=== PATIENT | male | born 1960 | race Caucasian/White ===

== ENCOUNTER 2019-06-03 08:47 | Emergency (ER) | payer OTHER, SELFPAY ==
--- NOTE | 2019-06-03 09:08 | ED_ITS ---
Entered by Jolly Valdez, acting as scribe for Remy Pink DO HPI - General Adult General: Chief complaint: Abdominal Pain Stated complaint: ABD PAIN Time Seen by Provider: 06/03/19 09:12 History of Present Illness: HPI narrative: 59 yo male presents with abd pain. pt states that he has had this pain for about 5-6 weeks. pt states that [facility], [facility] stated that it was const[facility]. Pt states that he has been taking magnesium. Pt states that he hasn't had any relief. Pt states that he still feels bloated and has pain. Pt states that he hasn't had any issues with constipation since he started taking dulcalax. Pt states that he has had vomiting. Pt states that when he lifts something that is over 10-15 pounds makes his pain. MD complaint: abd pain. Associated symptoms: Deny chest pain, dyspnea, malaise, nausea, rash or vomiting Review of Systems Const: Denies: fever, chills, body aches, change in appetite, fatigue or malaise ENMT: Denies: throat pain, ear pain, nasal discharge or nasal congestion Card: Denies: chest pain, edema, shortness of breath on exertion or shortness of breath when lying down Resp: Denies: shortness of breath, productive cough or non-productive cough GI: Reports: abdominal pain and bloating; Denies: nausea, vomiting, vomiting blood, coffee grounds in vomit, diarrhea, constipation, blood in stool or black tarry stool : Denies: flank pain, painful urination, urinary frequency or urinary urgency Skin/Breast: Denies: rash or itching PFS ED PFSH: Medical History (Updated 06/03/19 @ 11:17 by Remy Pink DO) Basal cell carcinoma Surgical History (Updated 06/03/19 @ 09:13 by Jolly Valdez) H/O circumcision History of right knee surgery Social History Smoking and tobacco status: never smoked Physical Exam Const: COMMON NORMALS: no apparent distress GENERAL APPEARANCE: cooperative and comfortable ORIENTATION/CONSCIOUSNESS: Yes awake, Yes oriented to person, Yes oriented to place and Yes oriented to time HENMT: COMMON NORMALS: normocephalic, head/scalp atraumatic, hearing grossly normal bilaterally, external ears normal, EAC's normal, TM's normal bilaterally, nasal mucous membranes and turbinates normal, moist oral mucous membranes and oropharynx normal HEAD & SCALP: normocephalic and atraumatic NOSE: nasal mucous membranes and turbinates normal EXTERNAL EAR: Yes external ears normal EXTERNAL AUDITORY CANAL: EAC's normal TYMPANIC MEMBRANE: TM's normal bilaterally Eye: COMMON NORMALS: PERRL, EOMs intact bilaterally, conjunctivae normal and no scleral icterus CONJUNCTIVA: Yes conjunctivae normal PUPIL: Yes PERRL Neck/C-Spine: COMMON NORMALS: full ROM, no lymphadenopathy, supple and no JVD Lymph: LYMPHATIC: no lymphadenopathy noted and no lymphedema noted Resp: COMMON NORMALS: normal respiratory effort, no retractions, no use of accessory muscles and clear to auscultation bilaterally AUSCULTATION: clear to auscultation bilaterally Cardio: COMMON NORMALS: no JVD, regular rate, regular rhythm and no murmurs RATE: regular rate RHYTHM: regular rhythm Extremity: COMMON NORMALS: normal to inspection, normal capillary refill, no clubbing, cyanosis or edema, no calf tenderness and no pedal edema Neuro: SENSORIUM/ORIENTATION: Yes oriented to person, Yes oriented to place and Yes oriented to time Skin: COMMON NORMALS: no rashes or lesions noted GENERAL SKIN EXAM: no rashes or lesions noted Course ED course: Evaluation negative labs unremarkable and his ultrasound of his abdomen unremarkable. He refers most of this pain to the right upper quadrant. He is not had other further work-up but suspect he may need an EGD which if that is negative he may need a HIDA scan beyond that. We will have him use [id number] omeprazole daily follow-up with his primary care doctor for further evaluation within the next week or 2 return if has worsening problems or changes Vital Signs: Vital signs: Vital Signs Temperature 98.2 F 06/03/19 09:09 Pulse Rate 87 06/03/19 11:46 Respiratory Rate 18 06/03/19 11:46 Blood Pressure 128/69 06/03/19 11:46 Pulse Oximetry 97 06/03/19 11:46 MDM - General Adult Lab Data: Labs: Lab Results 06/03/19 06/03/19 06/03/19 Range/Units 09:39 09:39 09:40 WBC 4.4 (4.0-10.0) 10^3/ uL RBC 4.85 (4.1-5.3) 10^6/u L Hgb 15.3 (11.7-16.6) g/dL Hct 46.4 (42.0-52.0) % MCV 95.7 H (80-94) fL MCH 31.5 (28.0-34.0) pg MCHC 33.0 (30.0-36.0) g/dL RDW 11.9 L (12.1-15.1) % Plt Count 199 (130-400) 10^3/c mm MPV 10.2 (7.4-10.4) fL Neut % (Auto) 50.3 % Lymph % (Auto) 37.0 % [place] % (Auto) 7.7 % Eos % (Auto) 4.1 % Baso % (Auto) 0.7 % Neut # (Auto) 2.2 (1.8-7.7) 10^3/u L Lymph # (Auto) 1.6 (0.8-4.8) 10^3/u L [place] # (Auto) 0.3 (0.2-0.9) 10^3/u L Eos # (Auto) 0.2 (0.0-0.8) 10^3/u L Baso # (Auto) 0.0 (0.0-0.1) 10^3/u L Nucleated RBC % (a uto) 0 % Nucleated RBCs # 0.0 /100WBC Sodium 138 (136-145) mmol/L Potassium 4.6 (3.5-5.1) mmol/L Chloride 102 (98-107) mmol/L Carbon Dioxide 28 (22-29) mmol/L Anion Gap 12.6 (5-19) BUN 20 (8-23) mg/dL Creatinine 0.9 (0.7-1.2) mg/dL GFR Calculation 85.8 L (90-130) mL/min Glucose 103 (65-115) mg/dL Calcium 9.8 (8.5-10.5) mg/dL Total Bilirubin 0.5 (0.15-1.2) mg/dL AST 23 (0-40) U/L ALT 27 (0-41) U/L Alkaline Phosphata se 100 (40-130) IU/L Total Protein 7.9 (6.6-8.7) g/dL Albumin 4.0 (3.5-5.2) g/dL Globulin 3.9 (1.3-4.6) g/dL Lipase 19 (13-60) U/L Urine Color Yellow (Yellow) Urine Appearance Clear (CLEAR) Urine pH 5.0 (5-7) Ur Specific Gravit y 1.020 (1.005-1.030) Urine Protein Neg (Negative) Urine Glucose (UA) Norm (Normal) Urine Ketones Negative (Negative) Urine Blood Trace H (Negative) Urine Nitrate Negative (Negative) Urine Bilirubin Neg (NEGATIVE) Urine Urobilinogen Norm (Negative) mg/dL Ur Leukocyte Pooja ase Negative (Negative) Urine RBC 0-4 H (0-2) /hpf Urine WBC None (0-5) /hpf Ur Squamous Epith Cells Rare (0-5) Urine Bacteria Trace (NONE) Urine Mucus 3+ Discharge Plan Discharge Patient Disposition: Home, Self-Care Clinical Impression: Abdominal pain Condition: Stable Prescriptions: New pantoprazole 40 mg tablet,delayed release (DR/EC) 40 mg PO DAILY 28 Days Qty: 30 RF: 0 No Action ibuprofen 200 mg Tablet 200 mg PO EVERY OTHER DAY PRN (Reason: Pain) RF: 0 magnesium citrate Solution 150 ml PO DAILY PRN (Reason: Constipation) RF: 0 Dulcolax (bisacodyl) 5 mg Tablet,Delayed Release (Dr/Ec) 15 mg PO DAILY PRN (Reason: Constipation) RF: 0 magnesium 250 mg Tablet 250 mg PO DAILY RF: 0 MSM 1,000 mg Tablet 1,000 mg PO DAILY RF: 0 Juice Plus 4 tab PO DAILY RF: 0 Discharge Orders: Discharge Order (Routine); Ordered 06/03/19 Ordered By: Remy Pink Referrals: Chandra Ramos [Family Provider] - Discharge Diet: As Directed Discharge Activity: Resume usual activity Patient Instructions: Cholecystitis (ED), Abdominal Pain (ED) Discharge Date/Time: 06/03/19 11:47 Coding Level of Care Code ED Automotive Design Layout Drafter for Chg Fwd Exam Comprehensive The documentation recorded by the José Miguel vanessa Kialy, accurately reflects the service I personally performed and the decisions made by Joesph love Curtis L, DO Jun 03, 2019 08:47
[2019-06-03 09:09] VITALS: BP 125/70; PULSE 78; RESP 16; TEMP 36.8; O2SAT 98; BMI 23.6
--- NOTE | 2019-06-03 09:33 | US_ITS ---
WS: [id number] RIGHT UPPER QUADRANT ULTRASOUND HISTORY: RIGHT upper quadrant pain. COMPARISON: None available. Liver: 10.1 cm in length. Normal size and echogenicity with no intrahepatic dilatation. No mass. Gallbladder: Gallbladder is slightly contracted with mild wall thickening. Probably on a nonfasting b ases. No stones identified. CBD: 2.5 cm Pancreas: Normal size and echogenicity. Right kidney: 10.8 cm in length. Normal echogenicity with no mass or hydronephrosis. Aorta and IVC: Unremarkable. No ascites. US/US gall bladder 62512 IMPRESSION: 1. Mildly contracted gallbladder. Probably on the basis of nonfasting. 2. No acute cholecystitis or cholelithiasis.
[2019-06-03 09:44] LABS: Basophils % 0.7 %; Eosinophils # 0.2 10^3/uL (0.0-0.8); Eosinophils % 4.1 %; Hematocrit 46.4 % (42.0-52.0); Hemoglobin 15.3 g/dL (11.7-16.6); Lymphocytes # 1.6 10^3/uL (0.8-4.8); Mean Corpuscular Hemoglobin 31.5 pg (28.0-34.0); Mean Corpuscular Volume 95.7 fL (80-94); Mean Platelet Volume 10.2 fL (7.4-10.4); Monocytes # 0.3 10^3/uL (0.2-0.9); Monocytes % 7.7 %; Neutrophils # 2.2 10^3/uL (1.8-7.7); Neutrophils % 50.3 %; Nucleated Red Blood Cells % 0 %; Platelet Count 199 10^3/cmm (130-400); Red Blood Count 4.85 10^6/uL (4.1-5.3); Red Cell Distribution Width 11.9 % (12.1-15.1); White Blood Count 4.4 10^3/uL (4.0-10.0)
[2019-06-03 10:00] LABS: Add Urine Microscopic? YES; Bilirubin Urine Neg (NEGATIVE); Blood Urine Trace (Negative); Glucose Urine UA Norm (Normal); Ketones Urine Negative (Negative); Leukocyte Esterase Urine Negative (Negative); Nitrate Urine Negative (Negative); Protein Urine Neg (Negative); Urine Appearance Clear (CLEAR); Urine Color Yellow (Yellow); Urobilinogen Urine Norm (Negative)
[2019-06-03 10:03] LABS: Alanine Aminotransferase 27 U/L (0-41); Alkaline Phosphatase 100 IU/L (40-130); Anion Gap 12.6 (5-19); Aspartate Amino Transferase 23 U/L (0-40); Blood Urea Nitrogen 20 mg/dL (8-23); Calcium 9.8 mg/dL (8.5-10.5); Carbon Dioxide 28 mmol/L (22-29); Chloride 102 mmol/L (98-107); Globulin 3.9 g/dL (1.3-4.6); Glomerular Filtration Rate 85.8 mL/min (90-130); Glucose 103 mg/dL (65-115); Lipase 19 U/L (13-60); Potassium 4.6 mmol/L (3.5-5.1); Sodium 138 mmol/L (136-145); Total Bilirubin 0.5 mg/dL (0.15-1.2); Total Protein 7.9 g/dL (6.6-8.7)
[2019-06-03 10:08] LABS: Add Urine Culture? No; Bacteria Urine TRACE; Mucus Urine 3+; RBC Urine 0-4 /hpf (0-2); Squamous Epithelial Cell Urine RARE (0-5)
[2019-06-03 11:46] VITALS: BP 128/69; PULSE 87; RESP 18; O2SAT 97
== END 2019-06-03 11:47 | disposition home or self-care (01) ==
PROVIDERS: Emergency Provider Family Medicine; Family Provider Internal Medicine
DX: R10.9 Unspecified abdominal pain (principal)
CPT/HCPCS: 36415; 76705; 80053; 81001; 83690; 85025; 99282; 99283

== ENCOUNTER 2019-06-15 09:40 | Emergency (ER) | payer OTHER, SELFPAY ==
[2019-06-15 09:42] VITALS: BP 142/76; RESP 16; O2SAT 98; BMI 23.4
[2019-06-15 11:50] VITALS: BP 145/84; PULSE 79; RESP 18; O2SAT 99
--- NOTE | 2019-06-15 12:33 | ED_ITS ---
HPI - Extremity Problem General: Chief complaint: Extremity Injury, Upper Stated complaint: RIGHT ARM HAS A SPLINTER Time Seen by Provider: 06/15/19 11:55 Source: patient Mode of arrival: ambulatory Limitations: no limitations History of Present Illness: HPI Narrative: splinter from telephone poll to R forearm yesterday; tetanus UTD Complaint: other (splinter to R forearm) Onset (ago): day(s) Pain Consistency: constant Location: right Review of Systems Musc: Reports: other (splinter R forearm) PFSH ED PFSH: Medical History (Updated 06/15/19 @ 12:32 by FER Youssef) Basal cell carcinoma Surgical History (Updated 06/03/19 @ 09:13 by Jolly Valdez) H/O circumcision History of right knee surgery Social History Smoking and tobacco status: never smoked Physical Exam Const: COMMON NORMALS: no apparent distress, average body habitus, oriented x3, no limitations, healthy appearing, alert and well nourished Extremity: OTHER: possibly palpate small splinter under skin Neuro: COMMON NORMALS: oriented x3 SENSORIUM/ORIENTATION: Yes alert Skin: NARRATIVE SKIN EXAM: small puncture tin to dorsal R forearm; about an inch of erythema Procedures Foreign Body Removal Time Out Performed: yes Site: right and upper extremity Description of foreign body: other (wooden splinter) Technique: other (was not able to remove splinter ) Complications: none Neurovascular: normal distal pulse, normal capillary fill, distal light touch sensation intact, distal motor function normal, no signs of compartment syndrome and no change from pre-procedure Course 2 Vital Signs: Vital signs: Vital Signs Pulse Rate 79 06/15/19 11:50 Respiratory Rate 18 06/15/19 11:50 Blood Pressure 145/84 06/15/19 11:50 Pulse Oximetry 99 06/15/19 11:50 MDM - Extremity (Nontraumatic) MDM Narrative: Medical decision making narrative: small incision was made over puncture tin where pt believed was entry point; used hemostats to proble around cautiously but unfortunately was not able to palpate or remove splinter today; will go ahead and place on abx; discussed that hopefully will work itself out or calcify however possibility about continuing infection/abscess was possible. Pt verbalized understanding. Return to ED precautions given. Splinter according to patient is too small for XR or US to be beneficial in its removal. Discharge Plan Discharge Patient Disposition: Home, Self-Care Clinical Impression: Superficial foreign body (splinter) of right elbow, forearm, and wrist without major open wound but with infection Qualifiers: Encounter type: initial encounter Qualified Code(s): S50.351A - Superficial foreign body of right elbow, initial encounter Condition: Stable Prescriptions: New Keflex 500 mg capsule 500 mg PO Q6H 7 Days Qty: 28 RF: 0 No Action ibuprofen 200 mg Tablet 200 mg PO EVERY OTHER DAY PRN (Reason: Pain) RF: 0 magnesium citrate Solution 150 ml PO DAILY PRN (Reason: Constipation) RF: 0 Dulcolax (bisacodyl) 5 mg Tablet,Delayed Release (Dr/Ec) 15 mg PO DAILY PRN (Reason: Constipation) RF: 0 magnesium 250 mg Tablet 250 mg PO DAILY RF: 0 MSM 1,000 mg Tablet 1,000 mg PO DAILY RF: 0 Juice Plus 4 tab PO DAILY RF: 0 pantoprazole 40 mg tablet,delayed release (DR/EC) 40 mg PO DAILY 28 Days Qty: 30 RF: 0 Discharge Orders: Discharge Order (Routine); Ordered 06/15/19 Ordered By: Suzan Castillo Referrals: Chandra Ramos [Family Provider] - Activity Restrictions/Additional Instructions: Return to the emergency department for worsening pain, worsening redness, discharge/foul odor, streaking up your arm, or any other concerns you may have. Fill your antibiotics promptly. Coding Level of Care Code ED Supervisor Cigar Processing for Luis Hoang
[2019-06-15 12:40] VITALS: BP 129/72; PULSE 69; RESP 16; O2SAT 99
== END 2019-06-15 12:41 | disposition home or self-care (01) ==
PROVIDERS: Emergency Provider Physician Assistant; Family Provider Internal Medicine
DX: S50.851A Superficial foreign body of right forearm, initial encounter (principal); W45.8XXA Other foreign body or object entering through skin, initial encounter
CPT/HCPCS: 10120; 12345; 99281; 99282

== ENCOUNTER 2020-10-02 17:02 | Emergency (ER) | payer OTHER, SELFPAY ==
[2020-10-02 17:24] VITALS: BP 168/95; PULSE 65; RESP 18; TEMP 36.8; O2SAT 97; BMI 22.8
--- NOTE | 2020-10-02 18:18 | CTR_ITS ---
PROCEDURE INFORMATION: Exam: CT Head Without Contrast Exam date and time: 10/02/2020 6:18 PM Age: 60 years old Clinical indication: Altered mental status/memory loss and dizziness and speech disturbance; Confusion or disorientation; Patient HX: Transient confusion, dizziness and slurred speech; Additional info: Stroke symptoms TECHNIQUE: Imaging protocol: Computed tomography of the head without contrast. Radiation optimization: All CT scans at this facility use at least one of these dose optimization techniques: automated exposure control; mA and/or kV adjustment per patient size (includes targeted exams where dose is matched to clinical indication); or iterative reconstruction. COMPARISON: No relevant prior studies available. RADIATION DOSE METRICS: Total DLP (mGy-cm): 817.94 FINDINGS: Brain: No evidence for large acute ischemic infarction. Please note acute ischemia can be occult by head CT. Cerebral ventricles: No ventriculomegaly. Paranasal sinuses: Visualized sinuses are unremarkable. No fluid levels. Mastoid air cells: Visualized mastoid air cells are well aerated. Vasculature: Calcified plaque is present within the carotid siphons. Bones/joints: Unremarkable. No acute fracture. Soft tissues: Unremarkable. CT/CT head wo con* [id number] IMPRESSION: There is calcified plaque in the carotid siphons. No evidence for large acute ischemic infarction. Radiation Dose CTDIVOL = (mGy): DLP = 817.94 (mGy-cm)
--- NOTE | 2020-10-02 18:18 | CTR_ITS ---
PROCEDURE INFORMATION: Exam: CT Angiography Head With Contrast, Arteriography Exam date and time: 10/02/2020 6:18 PM Age: 60 years old Clinical indication: Dizziness and giddiness and speech disturbance; Patient HX: Transient cunfusion, dizziness and slurred speech; Additional info: Stroke symptoms TECHNIQUE: Imaging protocol: Computed tomography angiography of the head with contrast. Exam focused on the arteries. 3D rendering (Not supervised by radiologist): MIP and/or 3D reconstructed images were created by the technologist. Radiation optimization: All CT scans at this facility use at least one of these dose optimization techniques: automated exposure control; mA and/or kV adjustment per patient size (includes targeted exams where dose is matched to clinical indication); or iterative reconstruction. Contrast material: OMNI 350; Contrast volume: 95 ml; Contrast route: INTRAVENOUS (IV); COMPARISON: CT head wo con* [id number] 10/02/2020 7:20 PM RADIATION DOSE METRICS: Total DLP (mGy-cm): 1859.87 FINDINGS: ANTERIOR CIRCULATION: Right internal carotid artery: There is calcified plaque in the carotid siphons with luminal irregularity. Intracranial segment is patent with no significant stenosis. No aneurysm. Right middle cerebral artery: Unremarkable. No occlusion or significant stenosis. No aneurysm. Right anterior cerebral artery: Unremarkable. No occlusion or significant stenosis. No aneurysm. Left internal carotid artery: There is calcified plaque in the carotid siphons with luminal irregularity. Intracranial segment is patent with no significant stenosis. No aneurysm. Left middle cerebral artery: Unremarkable. No occlusion or significant stenosis. No aneurysm. Left anterior cerebral artery: Unremarkable. No occlusion or significant stenosis. No aneurysm. POSTERIOR CIRCULATION: Right vertebral artery: Unremarkable. No occlusion or significant stenosis. No aneurysm. Left vertebral artery: Unremarkable. No occlusion or significant stenosis. No aneurysm. Basilar artery: Unremarkable. No occlusion or significant stenosis. No aneurysm. Right posterior cerebral artery: Unremarkable. No occlusion or significant stenosis. No aneurysm. Left posterior cerebral artery: Unremarkable. No occlusion or significant stenosis. No aneurysm. Brain: No definite mass, mass effect, or midline shift. Cerebral ventricles: No ventriculomegaly. Bones/joints: Unremarkable. No acute fracture. Soft tissues: Unremarkable. IMPRESSION: There is calcified plaque in the carotid siphons with luminal irregularity however no significant focal stenosis or occlusion. No large aneurysm. PROCEDURE INFORMATION: Exam: CT Angiography Neck With Contrast Exam date and time: 10/02/2020 6:18 PM Age: 60 years old Clinical indication: Dizziness and giddiness and speech disturbance; Patient HX: Transient cunfusion, dizziness and slurred speech; Additional info: Stroke symptoms TECHNIQUE: Imaging protocol: Computed tomography angiography of the neck with contrast. 3D rendering (Not supervised by radiologist): MIP and/or 3D reconstructed images were created by the technologist. Radiation optimization: All CT scans at this facility use at least one of these dose optimization techniques: automated exposure control; mA and/or kV adjustment per patient size (includes targeted exams where dose is matched to clinical indication); or iterative reconstruction. Contrast material: OMNI 350; Contrast volume: 95 ml; Contrast route: INTRAVENOUS (IV); COMPARISON: CT head wo con* [id number] 10/02/2020 7:20 PM RADIATION DOSE METRICS: Total DLP (mGy-cm): 1859.87 FINDINGS: Right common carotid artery: No stenosis. No dissection or occlusion. Right internal carotid artery: There mild atherosclerotic plaque at the origin. No stenosis of the extracranial segment. No dissection or occlusion. Right external carotid artery: No occlusion or stenosis of the origin. Left common carotid artery: No stenosis. No dissection or occlusion. Left internal carotid artery: There is mild atherosclerotic plaque at the origin. No stenosis of the extracranial segment. No dissection or occlusion. Left external carotid artery: No occlusion or stenosis of the origin. Right vertebral artery: No stenosis. No dissection or occlusion. Left vertebral artery: Mild atherosclerotic plaque at the origin. No stenosis. No dissection or occlusion. Soft tissues: Normal. No significant soft tissue swelling. Bones/joints: No acute fracture. Multilevel disc findings: There degenerative changes in the visualized spine.There are multilevel cervical broad-based disc osteophyte complexes which indent the anterior thecal sac and result in varying degrees of bilateral neuroforamina narrowing. CT/CT angio headneck* [id number] IMPRESSION: There is mild atherosclerotic plaque in the bilateral internal carotid artery and left vertebral artery origins. No significant focal stenosis or occlusion. REFERENCES: NASCET CRITERIA. The degree of internal carotid artery stenosis is based on NASCET criteria. Normal is no stenosis. Mild is less than 50% stenosis. Moderate is 50-69% stenosis. Severe is 70% to 99% stenosis. Total occlusion is no detectable patent lumen. Radiation Dose CTDIVOL = (mGy): DLP = 1859.87~1859.87 (mGy-cm)
--- NOTE | 2020-10-02 18:20 | ECG_ITS ---
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 Measurements Intervals [place] Rate: 62 P: 62 LA: 171 QRS: 68 QRSD: 105 T: 53 QT: 386 QTc: 393 Interpretive Statements SINUS RHYTHM INTERPRETATION BASED ON A DEFAULT AGE OF 40 YEARS No previous ECG available for comparison Electronically Signed On 10-03-2020 21:06:44 CDT by Oscar Desai M.D. [id number]
[2020-10-02] MEDS: sodium chloride 0.9% 1,000 ML 999 ML IV (18:55)
[2020-10-02 18:56] LABS: Basophils % 0.9 %; Eosinophils # 0.2 10^3/uL (0.0-0.8); Eosinophils % 4.9 %; Hemoglobin 15.4 g/dL (11.7-16.6); Lymphocytes # 1.5 10^3/uL (0.8-4.8); Mean Corpuscular HGB Conc 33.5 g/dL (30.0-36.0); Mean Corpuscular Hemoglobin 32.6 pg (28.0-34.0); Mean Corpuscular Volume 97.3 fL (80-94); Mean Platelet Volume 10.2 fL (7.4-10.4); Monocytes # 0.4 10^3/uL (0.2-0.9); Monocytes % 8.6 %; Neutrophils # 2.37 10^3/uL (1.8-7.7); Neutrophils % 52.6 %; Nucleated Red Blood Cells % 0 %; Platelet Count 193 10^3/cmm (130-400); Red Blood Count 4.73 10^6/uL (4.1-5.3); Red Cell Distribution Width 12.1 % (12.1-15.1); White Blood Count 4.5 10^3/uL (4.0-10.0)
[2020-10-02 19:04] VITALS: BP 123/79; O2SAT 99
[2020-10-02 19:12] LABS: INR 0.97 (0.8-1.2); Partial Thromboplastin Time 25.7 SECONDS (23.9-36.7)
[2020-10-02 19:17] LABS: Alanine Aminotransferase 21 U/L (0-41); Albumin Level 4.2 g/dL (3.5-5.2); Alkaline Phosphatase 94 IU/L (40-130); Anion Gap 13.4 (5-19); Aspartate Amino Transferase 21 U/L (0-40); Blood Urea Nitrogen 20 mg/dL (8-23); Carbon Dioxide 26 mmol/L (22-29); Chloride 103 mmol/L (98-107); Chol HDL Ratio 4.15 mg/dL (1.0-5.00); Cholesterol 191 mg/dL (0-200); Creatine Phosphokinase 155 U/L (39-308); Globulin 3.1 g/dL (1.3-4.6); Glomerular Filtration Rate 85.5 mL/min (90-130); Glucose 94 mg/dL (65-115); HDL Cholesterol 46 mg/dL (60-100); LDL Cholesterol Calculated 122 mg/dL (50-129); LDL HDL Ratio 2.65 RATIO (0.00-3.22); Osmolality Calculated 288 mOsm/kg (285-295); Potassium 4.4 mmol/L (3.5-5.1); Sodium 138 mmol/L (136-145); Total Bilirubin 0.4 mg/dL (0.15-1.2); Total Protein 7.3 g/dL (6.6-8.7); Triglycerides 113 mg/dL (0-150)
[2020-10-02] MEDS: iohexol 350 mg/mL 100 mL Btl IV (19:35)
[2020-10-02 19:59] LABS: Add Urine Microscopic? YES; Bilirubin Urine Neg (Negative); Blood Urine 2+ (Negative); Glucose Urine UA Norm (Normal); Ketones Urine Negative (Negative); Leukocyte Esterase Urine Negative (Negative); Nitrate Urine Negative (Negative); Protein Urine Neg (Negative); Urine Appearance Clear (CLEAR); Urine Color Yellow (Yellow); Urobilinogen Urine Norm (Negative); pH Urine 5 (5-7)
[2020-10-02 20:02] LABS: Add Urine Culture? No; Bacteria Urine TRACE /hpf; Mucus Urine 1+ /hpf; RBC Urine 0-4 /hpf (0-2); Squamous Epithelial Cell Urine 0-4 /hpf (0-5)
[2020-10-02 20:33] VITALS: BP 145/83; PULSE 69; RESP 16; TEMP 36.8; O2SAT 98
--- NOTE | 2020-10-03 05:41 | W.ED.NEUROSD ---
HPI - Neuro Symptoms/Deficit General: Chief Complaint: Neuro Symptoms/Deficit Stated Complaint: neuro symptoms/blurry vision, abd speech Time Seen by Provider: 10/02/20 18:11 History of Present Illness: HPI Narrative: Healthy 60-year-old male presents after an episode lasting 1 to 2 minutes, certainly less than 5 minutes of dizziness, vision problems, and speech problems. He had been outside working on a ladder, when he suddenly became dizzy. He climbed down the ladder, and symptoms progressed from there. They did not last long. They seem to be fully resolved at this point. Timing was around 1600. Associated symptoms: Reports nausea; Deny chest pain, cough, diaphoresis, fevers/chills, headache(s), seizures, syncope, vomiting or weakness Review of Systems Const: Denies: diaphoresis Eyes: Reports: change in vision and blurry vision ENMT: Denies: throat pain or hoarseness Card: Denies: chest pain or syncope Resp: Denies: dyspnea GI: Reports: nausea; Denies: vomiting : Denies: difficulty urinating Neuro: Reports: difficulty communicating thoughts; Denies: headache(s), numbness in extremities or sensory changes PFS ED PFSH: Medical History (Updated 10/02/20 @ 20:26 by Beka Briscoe DO) Basal cell carcinoma Surgical History (Updated 06/03/19 @ 09:13 by Jolly Valdez) H/O circumcision History of right knee surgery Social History Smoking and tobacco status: never smoked NIH stroke score NIHSS: Level Of Consciousness - 1a: 0 Level Of Consciousness Questions - 1b: Both Correct Level Of Consciousness Commands - 1c: Both Correct Best Gaze - 2: Normal Visual Lennon - 3: No Visual Loss Facial Palsy - 4: Normal Motor Arm Right - 5: No Drift Motor Arm Left - 5: No Drift Motor Leg Right - 6: No Drift Motor Leg Left - 6: No Drift Limb Ataxia - 7: Absent Sensory - 8: Normal Best Language - 9: No Aphasia Dysarthia - 10: Normal Extinction And Inattention - 11: 0 Score: Total Score: 0 Physical Exam Const: COMMON NORMALS: no acute distress and patient oriented x3 GENERAL APPEARANCE: cooperative and comfortable HENMT: COMMON NORMALS: normocephalic HEAD & SCALP: normocephalic FACE & SINUS: normal facial exam Eye: COMMON NORMALS: Equal, round and reactive pupils present and EOMs intact bilaterally PUPIL: Yes Equal, round and reactive pupils present Neck/C-Spine: COMMON NORMALS: full ROM GENERAL: No tender Chest: COMMONS NORMALS: normal inspection of the chest Resp: COMMON NORMALS: normal respiratory effort, No use of accessory muscles and clear to auscultation bilaterally AUSCULTATION: clear to auscultation bilaterally Cardio: COMMON NORMALS: regular rate and regular rhythm RATE: regular rate RHYTHM: regular rhythm GI: COMMON NORMALS: Normal to inspection, nondistended, normoactive bowel sounds present and Soft to palpation PALPATION: Yes Soft to palpation : COMMON NORMALS: Yes no CVA tenderness BLADDER/KIDNEY EXAM: Yes no CVA tenderness Back/Pelvis: COMMON NORMALS: no CVA tenderness Neuro: ALIZE COMA SCALE: document GCS findings Alize coma scale eye opening: Spontaneous [place] coma scale verbal response: Orientated Laize coma scale motor response: Obey commands Alize coma scale total score: 15 COMMON NORMALS: patient oriented x3 and CN's II-XII intact bilaterally Course Vital Signs: Vital signs: Vital Signs Temperature 98.3 F 10/02/20 20:33 Pulse Rate 69 10/02/20 20:33 Respiratory Rate 16 10/02/20 20:33 Blood Pressure 145/83 10/02/20 20:33 Pulse Oximetry 98 10/02/20 20:33 MDM - Neuro Symptoms/Deficit MDM Narrative: Medical decision making narrative: Patient at baseline in terms of neurological function. His NIH score is zero. He feels well. His laboratory is benign. CT of the head is negative. CTA is performed, and is also negative showing no significant stenosis or arterial occlusion that would require intervention at this time. 2D echo will be set up for this patient as an outpatient to complete stroke work-up. He'll be discharged on a full dose aspirin daily. Close outpatient follow-up. Lab Data: Labs: Lab Results 10/02/20 10/02/20 10/02/20 Range/Units 18:50 18:50 18:50 WBC 4.5 (4.0-10.0) 10^3/ uL RBC 4.73 (4.1-5.3) 10^6/u L Hgb 15.4 (11.7-16.6) g/dL Hct 46.0 (42.0-52.0) % MCV 97.3 H (80-94) fL MCH 32.6 (28.0-34.0) pg MCHC 33.5 (30.0-36.0) g/dL RDW 12.1 (12.1-15.1) % Plt Count 193 (130-400) 10^3/c mm MPV 10.2 (7.4-10.4) fL Neut % (Auto) 52.6 % Lymph % (Auto) 33.0 % [place] % (Auto) 8.6 % Eos % (Auto) 4.9 % Baso % (Auto) 0.9 % Neut # (Auto) 2.37 (1.8-7.7) 10^3/u L Lymph # (Auto) 1.5 (0.8-4.8) 10^3/u L [place] # (Auto) 0.4 (0.2-0.9) 10^3/u L Eos # (Auto) 0.2 (0.0-0.8) 10^3/u L Baso # (Auto) 0.0 (0.0-0.1) 10^3/u L Nucleated RBC % (a uto) 0 % Nucleated RBCs # 0.0 /100WBC PT 13.10 (12.1-14.9) SECO NDS INR 0.97 (0.8-1.2) APTT 25.7 (23.9-36.7) SECO NDS Sodium 138 (136-145) mmol/L Potassium 4.4 (3.5-5.1) mmol/L Chloride 103 (98-107) mmol/L Carbon Dioxide 26 (22-29) mmol/L Anion Gap 13.4 (5-19) BUN 20 (8-23) mg/dL Creatinine 0.9 (0.7-1.2) mg/dL GFR Calculation 85.5 L (90-130) mL/min Glucose 94 (65-115) mg/dL Calculated Osmolal ity 288 (285-295) mOsm/k g Calcium 9.0 (8.5-10.5) mg/dL Total Bilirubin 0.4 (0.15-1.2) mg/dL AST 21 (0-40) U/L ALT 21 (0-41) U/L Alkaline Phosphata se 94 (40-130) IU/L Creatine Kinase 155 (39-308) U/L Total Protein 7.3 (6.6-8.7) g/dL Albumin 4.2 (3.5-5.2) g/dL Globulin 3.1 (1.3-4.6) g/dL Triglycerides 113 (0-150) mg/dL Cholesterol 191 (0-200) mg/dL LDL Cholesterol, C alc 122 (50-129) mg/dL HDL Cholesterol 46 L (60-100) mg/dL LDL/HDL Ratio 2.65 (0.00-3.22) RATI O Cholesterol/HDL Ra fang 4.15 (1.0-5.00) mg/dL Urine Color (Yellow) Urine Appearance (CLEAR) Urine pH (5-7) Ur Specific Gravit y (1.005-1.030) Urine Protein (Negative) Urine Glucose (UA) (Normal) Urine Ketones (Negative) Urine Blood (Negative) Urine Nitrate (Negative) Urine Bilirubin (Negative) Urine Urobilinogen (Negative) mg/dL Ur Leukocyte Pooja ase (Negative) Urine RBC (0-2) /hpf Urine WBC (0-5) /hpf Ur Squamous Epith Cells (0-5) /hpf Amorphous Sediment Urine Bacteria (NONE) /hpf Urine Mucus /hpf 10/02/20 Range/Units 19:33 WBC (4.0-10.0) 10^3/ uL RBC (4.1-5.3) 10^6/u L Hgb (11.7-16.6) g/dL Hct (42.0-52.0) % MCV (80-94) fL MCH (28.0-34.0) pg MCHC (30.0-36.0) g/dL RDW (12.1-15.1) % Plt Count (130-400) 10^3/c mm MPV (7.4-10.4) fL Neut % (Auto) % Lymph % (Auto) % [place] % (Auto) % Eos % (Auto) % Baso % (Auto) % Neut # (Auto) (1.8-7.7) 10^3/u L Lymph # (Auto) (0.8-4.8) 10^3/u L [place] # (Auto) (0.2-0.9) 10^3/u L Eos # (Auto) (0.0-0.8) 10^3/u L Baso # (Auto) (0.0-0.1) 10^3/u L Nucleated RBC % (a uto) % Nucleated RBCs # /100WBC PT (12.1-14.9) SECO NDS INR (0.8-1.2) APTT (23.9-36.7) SECO NDS Sodium (136-145) mmol/L Potassium (3.5-5.1) mmol/L Chloride (98-107) mmol/L Carbon Dioxide (22-29) mmol/L Anion Gap (5-19) BUN (8-23) mg/dL Creatinine (0.7-1.2) mg/dL GFR Calculation (90-130) mL/min Glucose (65-115) mg/dL Calculated Osmolal ity (285-295) mOsm/k g Calcium (8.5-10.5) mg/dL Total Bilirubin (0.15-1.2) mg/dL AST (0-40) U/L ALT (0-41) U/L Alkaline Phosphata se (40-130) IU/L Creatine Kinase (39-308) U/L Total Protein (6.6-8.7) g/dL Albumin (3.5-5.2) g/dL Globulin (1.3-4.6) g/dL Triglycerides (0-150) mg/dL Cholesterol (0-200) mg/dL LDL Cholesterol, C alc (50-129) mg/dL HDL Cholesterol (60-100) mg/dL LDL/HDL Ratio (0.00-3.22) RATI O Cholesterol/HDL Ra fang (1.0-5.00) mg/dL Urine Color Yellow (Yellow) Urine Appearance Clear (CLEAR) Urine pH 5 (5-7) Ur Specific Gravit y 1.020 (1.005-1.030) Urine Protein Neg (Negative) Urine Glucose (UA) Norm (Normal) Urine Ketones Negative (Negative) Urine Blood 2+ H (Negative) Urine Nitrate Negative (Negative) Urine Bilirubin Neg (Negative) Urine Urobilinogen Norm (Negative) mg/dL Ur Leukocyte Pooja ase Negative (Negative) Urine RBC 0-4 H (0-2) /hpf Urine WBC None (0-5) /hpf Ur Squamous Epith Cells 0-4 H (0-5) /hpf Amorphous Sediment Not Reportable Urine Bacteria Trace (NONE) /hpf Urine Mucus 1+ /hpf Discharge Plan Discharge Patient Disposition: Home Clinical Impression: Transient cerebral ischemia Qualifiers: Transient cerebral ischemia type: unspecified Qualified Code(s): G45.9 - Transient cerebral ischemic attack, unspecified Condition: Stable Prescriptions: New aspirin 325 mg tablet 325 mg PO DAILY Qty: 30 RF: 0 No Action ibuprofen 200 mg Tablet 200 mg PO EVERY OTHER DAY PRN (Reason: Pain) RF: 0 magnesium citrate Solution 150 ml PO DAILY PRN (Reason: Constipation) RF: 0 Dulcolax (bisacodyl) 5 mg Tablet,Delayed Release (Dr/Ec) 15 mg PO DAILY PRN (Reason: Constipation) RF: 0 magnesium 250 mg Tablet 250 mg PO DAILY RF: 0 MSM 1,000 mg Tablet 1,000 mg PO DAILY RF: 0 Juice Plus 4 tab PO DAILY RF: 0 Discharge Orders: Discharge ED (Routine); Ordered 10/02/20 Ordered By: Beka Briscoe Discharge Diet: Usual diet Discharge Activity: Limit activity as instructed Patient Instructions: Transient Ischemic Attack (ED) Activity Restrictions/Additional Instructions: You should have an echocardiogram of your heart as an outpatient to complete your stroke work-up. This has been ordered for you. You should get a call regarding an appointment for this. If you do not hear from our rn case management by Saturday afternoon call [phone] and ask for the ER rn case management. Limit your activity to less strenuous activity until your work-up is complete. Return for any new episodes of dizziness, blurred vision, trouble with speech, weakness, syncope or passing out, or any other concerning symptoms. It is recommended that you take a full dose aspirin daily. Coding Level of Care Code ED At Home Independent Call Center Agent for Luis Fwjosé Exam Comprehensive
--- NOTE | 2020-10-05 07:38 | PC.SOCIAL ---
Addendum entered by Paula Strong, RN 10/05/20 07:41: Also discussed with Mar by phone to confirm she received information. Original Note: Faxed and emailed Mar- Care in the community recreation [facility]. [facility] will [facility] cardiac consult for [facility] to get [facility]. This may [facility] the [facility] but she can let us know. PCP is Dr Treadwell at the [facility]
== END 2020-10-02 20:35 | disposition home or self-care (01) ==
PROVIDERS: Emergency Provider Emergency Medicine
DX: G45.9 Transient cerebral ischemic attack, unspecified (principal)
CPT/HCPCS: 70450; 70496; 70498; 80053; 80061; 81001; 82550; 85025; 85610; 85730; 93005; 96360; 99284; J7030; Q9967

== ENCOUNTER 2021-01-13 09:17 | Outpatient (CLI) | payer OTHER, SELFPAY ==
--- NOTE | 2021-01-13 09:30 | USCV_ITS ---
Sebastián Chu Age: 60 Gender: M : 1960 Exam Date: 01/13/2021 09:39 Ordering Phys: Yani Treadwell MD Technologist: Sierra Tena Exam Location: [facility] [place] Indication: chest pain BP: 131 / 70 HR: 65 Rhythm: Sinus Technical Quality: Good MEASUREMENTS (Male / Female) Normal Values 2D ECHO LV Diastolic Diameter PLAX 4.6 cm 4.2 - 5.9 / 3.9 - 5.3 cm LV Systolic Diameter PLAX 2.9 cm IVS Diastolic Thickness 0.9 cm 0.6 - 1.0 / 0.6 - 0.9 cm IVS Systolic Thickness 1.5 cm LVPW Diastolic Thickness 0.7 cm 0.6 - 1.0 / 0.6 - 0.9 cm LVPW Systolic Thickness 1.4 cm LV Ejection Fraction 2D Teich 66.4 % LV Ejection Fraction MOD 2C 57.1 % LV Ejection Fraction 2C AL 58.6 % LA Diameter 2.3 cm LA Width 4.5 cm LA Height 3.8 cm RA Width 4.4 cm RA Height 4.6 cm Aorta at Sinotubular Diameter 3.2 cm DOPPLER AV Peak Velocity 108.0 cm/s LVOT Peak Velocity 116.0 cm/s MV Peak Velocity 82.0 cm/s MV Area PHT 3.9 cm squared Mitral E to A Ratio 1.6 MV E' Velocity 49.0 cm/s Mitral E to MV E' Ratio 8.9 Mitral E to LV E' Lateral Ratio 7.3 Mitral E to LV E' Septal Ratio 11.6 TR Peak Velocity 165.0 cm/s TR Peak Gradient 10.9 mmHg Right Atrial Pressure 3.0 mmHg Pulmonary Artery Systolic Pressu 13.9 mmHg PV Peak Velocity 88.0 cm/s RV Acceleration Time 0.1 s RV Ejection Time 0.3 s RV AcT/ET 0.4 FINDINGS Left Ventricle Normal left ventricular size. LV systolic function is normal with EF of 55-60%.No regional wall motion abnormalities. Normal diastolic filling pattern. Right Ventricle The right ventricle is normal in size and function. Right Atrium The right atrium is normal in size. Left Atrium The left atrium is normal in size. Mitral Valve Mild mitral annular calcification without significant stenosis or prolapse. There is trace mitral regurgitation. Aortic Valve Structurally normal aortic valve without significant sclerosis or stenosis. There is no aortic regurgitation. Tricuspid Valve Structurally normal tricuspid valve without significant stenosis. Mild tricuspid regurgitation. Pulmonary artery systolic pressure is normal. Pulmonic Valve Structurally normal pulmonic valve without significant stenosis. There is no pulmonic regurgitation. Pericardium Normal pericardium without effusion. Aorta Normal ascending aorta dimension. CONCLUSIONS LV systolic function is normal with EF of 55-60% Diastolic function is normal Trace mitral regurgitation Mild mitral annular calcification Mild tricuspid regurgitation No comparison studies are available Martin Duncan MD (Electronically Signed) Final Date: 21 January 2021 21:15 S
== END 2021-01-13 09:18 | disposition home or self-care (01) ==
LOC: US 09:20
PROVIDERS: PCP Family Medicine; Visit Provider Family Medicine
DX: R07.9 Chest pain, unspecified (principal); I08.1 Rheumatic disorders of both mitral and tricuspid valves
CPT/HCPCS: 93306

== ENCOUNTER 2021-09-21 08:41 | Emergency (ER) | payer OTHER, SELFPAY ==
[2021-09-21 08:48] VITALS: BP 138/73; PULSE 65; RESP 16; TEMP 36.7; O2SAT 98; BMI 22.8
[2021-09-21 09:33] LABS: Add Urine Microscopic? NO; Charge for UA Resulting for Rev
[2021-09-21 09:48] LABS: Urine Appearance Clear (CLEAR); Urine Color Yellow (Yellow)
[2021-09-21 09:49] LABS: Bilirubin Urine Neg (Negative); Blood Urine Neg (Negative); Glucose Urine UA Norm (Normal); Ketones Urine Negative (Negative); Leukocyte Esterase Urine Negative (Negative); Nitrate Urine Negative (Negative); Protein Urine Neg (Negative); Urobilinogen Urine Norm (Negative); pH Urine 6 (5-7)
[2021-09-21 10:01] VITALS: BP 126/75; PULSE 64; RESP 16; O2SAT 98
--- NOTE | 2021-09-21 10:12 | ED_ITS ---
HPI - Abdominal Pain General: Chief Complaint: Abdominal Pain Stated Complaint: groin pain/back pain Time Seen by Provider: 09/21/21 10:00 History of Present Illness: Patient is a 61-year-old male comes to the ED with abdominal pain. Abdominal pain started approximately 2 to 3 months ago. Pain was mild at first and has continued to progress. Pain is located in the right groin region and then radiates up into right flank. He rates the pain currently a 3 out of 10. Pain worsens when lying flat. Pain improves throughout the day when he is up and moving around. Denies any mass or bulge in the right groin region. Endorses having some dysuria but denies any hematuria. Denies any fever, nausea/vomiting, bowel symptoms, testicular pain, penile discharge or bleeding. Past medical history of enlarged prostate and is scheduled to see urologist at [facility] next week. Associated Symptoms: Reports dysuria; Denies chills, constipation, diarrhea, fever(s), hematochezia, hematuria, nausea and vomiting Review of Systems Const: Denies: fever(s), chills or fatigue Eyes: Denies: change in vision or eye discomfort ENMT: Denies: throat pain, odynophagia, nasal discharge or nasal congestion Card: Denies: chest pain, palpitations, edema, swelling of feet/ankles, dyspnea on exertion or orthopnea Resp: Denies: dyspnea, productive cough or non-productive cough GI: Reports: abdominal pain (Right inguinal patient); Denies: nausea, vomiting, diarrhea, constipation or hematochezia : Reports: dysuria; Denies: flank pain, difficulty urinating, hematuria, penile discharge or testicular pain Musc: Denies: neck pain, back pain or extremity swelling Skin/Breast: Denies: rash or new lesions Neuro: Denies: headache(s), numbness in extremities or weakness in extremities PFSH ED PFSH: Medical History Basal cell carcinoma Surgical History H/O circumcision History of right knee surgery Social History Smoking and tobacco status: never smoked Physical Exam Const: COMMON NORMALS: no acute distress, patient oriented x3, healthy appearing and alert GENERAL APPEARANCE: cooperative and comfortable HENMT: COMMON NORMALS: normocephalic HEAD & SCALP: normocephalic MOUTH: Normal oral and palatal mucosa present THROAT: posterior oropharynx normal and uvula midline Neck/C-Spine: COMMON NORMALS: supple GENERAL: Yes normal visual inspection Resp: COMMON NORMALS: normal respiratory effort, No retractions, No use of accessory muscles and clear to auscultation bilaterally AUSCULTATION: clear to auscultation bilaterally Cardio: COMMON NORMALS: regular rate, regular rhythm, S1 normal heart sound present, S2 normal heart sound present, No gallops present (Cardio), No clicks present (Cardio), No murmurs present (Cardio) and Peripheral pulses 2+ throughout RATE: regular rate RHYTHM: regular rhythm HEART SOUNDS: S1 normal heart sound present and S2 normal heart sound present PERIPHERAL PULSES: Peripheral pulses 2+ throughout GI: COMMON NORMALS: Normal to inspection, nondistended, normoactive bowel s ounds present, Soft to palpation, non-tender and no masses PALPATION: Yes Soft to palpation : COMMON NORMALS: Yes no CVA tenderness BLADDER/KIDNEY EXAM: Yes no CVA tenderness Back/Pelvis: COMMON NORMALS: no CVA tenderness Extremity: COMMON NORMALS: normal to inspection Neuro: COMMON NORMALS: patient oriented x3 SENSORIUM/ORIENTATION: Yes alert GAIT: Yes Normal gait present Skin: GENERAL SKIN EXAM: dry skin Course Vital Signs: Vital signs: Vital Signs Temperature 98.1 F 09/21/21 08:48 Pulse Rate 66 09/21/21 12:40 Respiratory Rate 16 09/21/21 12:40 Blood Pressure 119/79 09/21/21 12:40 Pulse Oximetry 99 09/21/21 12:40 MDM - Abdominal Pain Medical Decision Making Patient is a 61-year-old male comes to the ED right inguinal pain that is been going on now for over 2 months. He endorses some dysuria but denies any other symptoms. Denies any genital discharge or testicular pain. He does have a history of enlarged prostate and is scheduled to see his urologist next week. Vitals are stable. Exam is benign. All labs were unremarkable. UA showed no signs of blood or UTI. CT abdomen pelvis showed no acute findings but noted some mild constipation. Patient was stable for discharge home and diagnosed with right inguinal pain and constipation. He was told to follow-up with his u rologist at his scheduled appointment next week. Return ED precautions given. Patient understood agree with plan. Lab Data I reviewed the patient's lab results. : 09/21/21 10:42 09/21/21 10:42 Labs/Radiology: Radiology Impressions Abdomen/Pelvis CT 09/21/21 11:27 IMPRESSION: 1. No lymphadenopathy or ascites. 2. Normal appendix. 3. Partial fusion and narrowing of the SI joints bilaterally. 4. No renal obstruction. 5. Constipation. Laboratory Results WBC 4.5 10^3/uL (4.0-10.0) 09/21/21 10:42 RBC 4.76 10^6/uL (4.1-5.3) 09/21/21 10:42 Hgb 15.6 g/dL (11.7-16.6) 09/21/21 10:42 Hct 44.9 % (42.0-52.0) 09/21/21 10:42 MCV 94.3 fl (80-94) H 09/21/21 10:42 MCH 32.8 pg (28.0-34.0) 09/21/21 10:42 MCHC 34.7 g/dL (30.0-36.0) 09/21/21 10:42 RDW 12.3 % (12.1-15.1) 09/21/21 10:42 Plt Count 193 10^3/cmm (130-400) 09/21/21 10:42 MPV 10.6 fL (7.4-10.4) H 09/21/21 10:42 Neut % (Auto) 48.9 % 09/21/21 10:42 Lymph % (Auto) 36.1 % 09/21/21 10:42 [place] % (Auto) 10.6 % 09/21/21 10:42 Eos % (Auto) 3.3 % 09/21/21 10:42 Baso % (Auto) 0.9 % 09/21/21 10:42 Neut # (Auto) 2.21 10^3/uL (1.8-7.7) 09/21/21 10:42 Lymph # (Auto) 1.6 10^3/uL (0.8-4.8) 09/21/21 10:42 [place] # (Auto) 0.5 10^3/uL (0.2-0.9) 09/21/21 10:42 Eos # (Auto) 0.2 10^3/uL (0.0-0.8) 09/21/21 10:42 Baso # (Auto) 0.0 10^3/uL (0.0-0.1) 09/21/21 10:42 Nucleated RBC % (auto) 0 % 09/21/21 10:42 Nucleated RBCs # 0.0 /100WBC 09/21/21 10:42 Sodium 138 mmol/L (136-145) 09/21/21 10:42 Potassium 4.8 mmol/L (3.5-5.1) 09/21/21 10:42 Chloride 103 mmol/L (98-107) 09/21/21 10:42 Carbon Dioxide 26 mmol/L (22-29) 09/21/21 10:42 Anion Gap 13.8 (5-19) 09/21/21 10:42 BUN 19 mg/dL (8-23) 09/21/21 10:42 Creatinine 0.8 mg/dL (0.7-1.2) 09/21/21 10:42 GFR Calculation 97.6 mL/min (90-130) 09/21/21 10:42 Glucose 96 mg/dL (65-115) 09/21/21 10:42 Calculated Osmolality 288 mOsm/kg (285-295) 09/21/21 10:42 Calcium 9.1 mg/dL (8.5-10.5) 09/21/21 10:42 Total Bilirubin 0.4 mg/dL (0.15-1.2) 09/21/21 10:42 AST 25 U/L (0-40) 09/21/21 10:42 ALT 30 U/L (0-41) 09/21/21 10:42 Alkaline Phosphatase 96 IU/L (40-130) 09/21/21 10:42 Total Protein 7.4 g/dL (6.6-8.7) 09/21/21 10:42 Albumin 4.2 g/dL (3.5-5.2) 09/21/21 10:42 Globulin 3.2 g/dL (1.3-4.6) 09/21/21 10:42 Lipase 18 U/L (13-60) 09/21/21 10:42 Urine Color Yellow (Yellow) 09/21/21 08:58 Urine Appearance Clear (CLEAR) 09/21/21 08:58 Urine pH 6 (5-7) 09/21/21 08:58 Ur Specific [place] 1.020 (1.005-1.030) 09/21/21 08:58 Urine Protein Neg (Negative) 09/21/21 08:58 Urine Glucose (UA) Norm (Normal) 09/21/21 08:58 Urine Ketones Negative (Negative) 09/21/21 08:58 Urine Blood Neg (Negative) 09/21/21 08:58 Urine Nitrate Negative (Negative) 09/21/21 08:58 Urine Bilirubin Neg (Negative) 09/21/21 08:58 Urine Urobilinogen Norm mg/dL (Negative) 09/21/21 08:58 Ur Leukocyte Esterase Negative (Negative) 09/21/21 08:58 Discharge Plan Discharge Patient Disposition: Home Clinical Impression: Right inguinal pain Constipation Qualifiers: Constipation type: slow transit constipation Qualified Code(s): K59.01 - Slow transit constipation Condition: Stable Prescriptions: New cyclobenzaprine 7.5 mg tablet 7.5 mg PO BID PRN (Reason: muscle spasm and pain) Qty: 15 0RF No Action methylsulfonylmethane [MSM] 1,000 mg Tablet 1,000 mg PO DAILY 0RF Juice Plus 4 tab PO DAILY 0RF Rx Instructions: 2 veggie tabs and 2 fruit tabs daily sildenafil 100 mg Tablet 50 mg PO . DIRECTED PRN (Reason: Erectile Dysfunction) 0RF Rx Instructions: administer 30 minutes to 4 hours before activity Discharge Orders: Discharge ED (Routine); Ordered 09/21/21 Ordered By: Joey Haskins Referrals: Yani Treadwlel MD [Primary Care Provider] - Discharge Diet: Regular Discharge Activity: Increase activity as tolerated Activity Restrictions/Additional Instructions: Follow-up with urologist at your scheduled appointment next week for reevaluation. Take medications as prescribed. Take [id number] [id number] daily for the next 3 days to help with constipation. Return to the ER or your medical provider if condition worsens. Please read and understand discharge instructions. Thank you for choosing [facility] for your healthcare needs today. Please realize this is an emergency room and that we are providing you with a medical screening exam and this may not be complete and all inclusive of all the testing and or work up that you may need to determine your ailment or severity of your illness. It is very important that you follow up as instructed or that you return to the Emergency Department should you have concerns or if your condition changes or worsens in any way. Coding Level of Care Code ED Climatologist for Luis Fwd Exam Comprehensive
[2021-09-21 10:53] LABS: Basophils % 0.9 %; Eosinophils # 0.2 10^3/uL (0.0-0.8); Eosinophils % 3.3 %; Hematocrit 44.9 % (42.0-52.0); Hemoglobin 15.6 g/dL (11.7-16.6); Lymphocytes # 1.6 10^3/uL (0.8-4.8); Lymphocytes % 36.1 %; Mean Corpuscular HGB Conc 34.7 g/dL (30.0-36.0); Mean Corpuscular Hemoglobin 32.8 pg (28.0-34.0); Mean Corpuscular Volume 94.3 fl (80-94); Mean Platelet Volume 10.6 fL (7.4-10.4); Monocytes # 0.5 10^3/uL (0.2-0.9); Monocytes % 10.6 %; Neutrophils # 2.21 10^3/uL (1.8-7.7); Neutrophils % 48.9 %; Nucleated Red Blood Cells % 0 %; Platelet Count 193 10^3/cmm (130-400); Red Blood Count 4.76 10^6/uL (4.1-5.3); Red Cell Distribution Width 12.3 % (12.1-15.1); White Blood Count 4.5 10^3/uL (4.0-10.0)
[2021-09-21 11:19] LABS: Alanine Aminotransferase 30 U/L (0-41); Albumin Level 4.2 g/dL (3.5-5.2); Alkaline Phosphatase 96 IU/L (40-130); Anion Gap 13.8 (5-19); Aspartate Amino Transferase 25 U/L (0-40); Blood Urea Nitrogen 19 mg/dL (8-23); Calcium 9.1 mg/dL (8.5-10.5); Carbon Dioxide 26 mmol/L (22-29); Chloride 103 mmol/L (98-107); Globulin 3.2 g/dL (1.3-4.6); Glomerular Filtration Rate 97.6 mL/min (90-130); Glucose 96 mg/dL (65-115); Lipase 18 U/L (13-60); Osmolality Calculated 288 mOsm/kg (285-295); Potassium 4.8 mmol/L (3.5-5.1); Sodium 138 mmol/L (136-145); Total Bilirubin 0.4 mg/dL (0.15-1.2); Total Protein 7.4 g/dL (6.6-8.7)
--- NOTE | 2021-09-21 11:27 | CT_ITS ---
WS: [id number] CT ABDOMEN AND PELVIS NONCONTRAST HISTORY: right inguinal pain TECHNIQUE: Imaging performed through the abdomen and pelvis. Coronal and sagittal reformats are submi tted. All CT scans at [facility] use at least one of these dose optimization techniques: auto mated exposure control; mA and/or kV adjustment per patient size (includes targeted exams where dose is matched to clinical indication); or iterative reconstruction. DLP: 1115.24 mGy.cm COMPARISON: None available. Lower thorax: Emphysematous changes at the lung bases. Normal size heart. Small hiatal hernia. Liver: Hepatic steatosis. 8 mm low-attenuation nodule LEFT lobe of the liver most likely a cyst. No b ile duct dilatation. Gallbladder: Normal gallbladder. Pancreas: Pancreas is poorly visualized. No abnormality identified. Spleen: Normal. Adrenal glands: Normal. No mass. Right kidney: Normal size kidney with no mass or hydronephrosis. Left kidney: Normal size kidney with no mass or hydronephrosis. Aorta: Mild atherosclerosis abdominal aorta with no aneurysm. No free fluid, intraperitoneal air or significant lymphadenopathy. GI tract: Normal appendix. No GI tract obstruction or diverticulosis. Mild diffuse constipation. Abdominal wall: Negative. No hernia. Pelvis: No free fluid. There are several small lymph nodes in the RIGHT lower quadrant. No enlarged l ymph nodes. Osseous structures: Partial fusion across the SI joints. No erosions. Mild central and foraminal sten osis at L4-5. CT/CT abdomen pelvis wo con [id number] IMPRESSION: 1. No lymphadenopathy or ascites. 2. Normal appendix. 3. Partial fusion and narrowing of the SI joints bilaterally. 4. No renal obstruction. 5. Constipation.
[2021-09-21 12:40] VITALS: BP 119/79; PULSE 66; RESP 16; O2SAT 99
== END 2021-09-21 12:41 | disposition home or self-care (01) ==
PROVIDERS: Student in an Organized Health Care Education/Training Program; Emergency Provider Physician Assistant; PCP Family Medicine
DX: K59.01 Slow transit constipation (principal); R10.30 Lower abdominal pain, unspecified
CPT/HCPCS: 74176; 80053; 81003; 83690; 85025; 99283

== ENCOUNTER 2021-11-08 01:24 | Emergency (ER) | payer OTHER, SELFPAY ==
--- NOTE | 2021-11-08 01:25 | XRR_ITS ---
PROCEDURE INFORMATION: Exam: XR Chest Exam date and time: 11/08/2021 1:31 AM Age: 61 years old Clinical indication: Chest pressure; Patient HX: C/O chest pain; Additional info: Cp TECHNIQUE: Imaging protocol: Radiologic exam of the chest. Views: 1 view. COMPARISON: CT abdomen pelvis wo con [id number] 09/21/2021 11:43 AM FINDINGS: Lungs: There is mild pulmonary hyperinflation. There is an opacity at the left lung base that may be secondary to atelectasis or developing pneumonia. Pleural spaces: No pleural effusion or pneumothorax. Heart/Mediastinum: The heart is normal in size. Bones/joints: No acute fracture is identified. XR/XR chest 1V portable [id number] IMPRESSION: Left lung base opacity that may represent atelectasis or in the appropriate clinical setting, pneumonia.
[2021-11-08 01:26] VITALS: BMI 22.8
--- NOTE | 2021-11-08 01:29 | ED_ITS ---
HPI - Chest Pain General: Chief Complaint: Chest Pain Stated Complaint: CP Time Seen by Provider: 11/08/21 01:25 Source: patient and EMS Mode of arrival: EMS Limitations: no limitations History of Present Illness: 61-year-old male who states that roughly 4 hours ago history having some chest pain. States he was just sitting at rest having a pressure pain in the center of her chest that radiated to his left neck. He had some diaphoresis denies any nausea denies any shortness of breath he states that he does get reflux he had took Tums with no relief patient took a aspirin at home he did receive nitro in route that resolved his pain. Associated symptoms: Deny abdominal pain, dyspnea, fever(s), nausea or vomiting Review of Systems Const: Denies: fever(s), chills, body aches or change in appetite Eyes: Denies: blurry vision or eye discomfort ENMT: Denies: throat pain or dental pain Card: Reports: chest pain Resp: Denies: dyspnea GI: Denies: abdominal pain, nausea, vomiting or diarrhea : Denies: dysuria Musc: Denies: neck pain or back pain Skin/Breast: Denies: rash Neuro: Denies: headache(s) Psych: Denies: depression Pablo/Lymph: Denies: easy bruising All/Imm: Denies: urticaria PFSH ED PFSH: Medical History Basal cell carcinoma Surgical History H/O circumcision History of right knee surgery Social History Smoking and tobacco status: never smoked Physical Exam Const: COMMON NORMALS: patient oriented x3 HENMT: COMMON NORMALS: normocephalic and atraumatic HEAD & SCALP: normocephalic and atraumatic Eye: COMMON NORMALS: Equal, round and reactive pupils present and EOMs intact bilaterally PUPIL: Yes Equal, round and reactive pupils present Neck/C-Spine: COMMON NORMALS: full ROM and supple Chest: COMMONS NORMALS: normal inspection of the chest and normal palpation of entire chest wall Resp: COMMON NORMALS: normal respiratory effort, No retractions, No use of accessory muscles and clear to auscultation bilaterally AUSCULTATION: clear to auscultation bilaterally Cardio: COMMON NORMALS: regular rate, regular rhythm and No murmurs present (Cardio) RATE: regular rate RHYTHM: regular rhythm GI: COMMON NORMALS: Normal to inspection, nondistended, normoactive bowel sounds present, Soft to palpation, non-tender and no masses PALPATION: Yes Soft to palpation Extremity: COMMON NORMALS: normal to inspection and full ROM Neuro: COMMON NORMALS: patient oriented x3, moves all extremities and no focal motor deficits Psych: COMMON NORMALS: mental status grossly normal, Normal thought process present and cooperative THOUGHT PROCESS: Normal thought process present Skin: COMMON NORMALS: no rashes or lesions noted and no wounds GENERAL SKIN EXAM: no rashes or lesions noted Course Vital Signs: Vital signs: Vital Signs Temperature 98.2 F 11/08/21 01:31 Pulse Rate 66 11/08/21 01:31 Respiratory Rate 16 11/08/21 01:31 Blood Pressure 140/79 11/08/21 01:31 Pulse Oximetry 98 11/08/21 01:31 Oxygen Delivery Me thod 11/08/21 01:31 MDM - Chest Pain Medical Decision Making Patient presents here his chest pain is since resolved has been chest pain-free here initial repeat troponins here are normal patient is healthy with no risk factors he states has been having these pains often he is attributed some to possible reflux I informed him 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 Lab Data : 11/08/21 01:45 11/08/21 01:45 Laboratory Results WBC 5.5 10^3/uL (4.0-10.0) 11/08/21 01:45 RBC 4.41 10^6/uL (4.1-5.3) 11/08/21 01:45 Hgb 14.5 g/dL (11.7-16.6) 11/08/21 01:45 Hct 42.5 % (42.0-52.0) 11/08/21 01:45 MCV 96.4 fl (80-94) H 11/08/21 01:45 MCH 32.9 pg (28.0-34.0) 11/08/21 01:45 MCHC 34.1 g/dL (30.0-36.0) 11/08/21 01:45 RDW 12.2 % (12.1-15.1) 11/08/21 01:45 Plt Count 179 10^3/cmm (130-400) 11/08/21 01:45 MPV 10.6 fL (7.4-10.4) H 11/08/21 01:45 Neut % (Auto) 50.6 % 11/08/21 01:45 Lymph % (Auto) 36.2 % 11/08/21 01:45 [place] % (Auto) 8.0 % 11/08/21 01:45 Eos % (Auto) 4.7 % 11/08/21 01:45 Baso % (Auto) 0.5 % 11/08/21 01:45 Neut # (Auto) 2.78 10^3/uL (1.8-7.7) 11/08/21 01:45 Lymph # (Auto) 2.0 10^3/uL (0.8-4.8) 11/08/21 01:45 [place] # (Auto) 0.4 10^3/uL (0.2-0.9) 11/08/21 01:45 Eos # (Auto) 0.3 10^3/uL (0.0-0.8) 11/08/21 01:45 Baso # (Auto) 0.0 10^3/uL (0.0-0.1) 11/08/21 01:45 Nucleated RBC % (auto) 0 % 11/08/21 01:45 Nucleated RBCs # 0.0 /100WBC 11/08/21 01:45 Sodium 136 mmol/L (136-145) 11/08/21 01:45 Potassium 4.2 mmol/L (3.5-5.1) 11/08/21 01:45 Chloride 98 mmol/L (98-107) 11/08/21 01:45 Carbon Dioxide 29 mmol/L (22-29) 11/08/21 01:45 Anion Gap 13.2 (5-19) 11/08/21 01:45 BUN 24 mg/dL (8-23) H 11/08/21 01:45 Creatinine 0.9 mg/dL (0.7-1.2) 11/08/21 01:45 GFR Calculation 85.2 mL/min (90-130) L 11/08/21 01:45 Glucose 99 mg/dL (65-115) 11/08/21 01:45 Calculated Osmolality 286 mOsm/kg (285-295) 11/08/21 01:45 Calcium 9.3 mg/dL (8.5-10.5) 11/08/21 01:45 Total Bilirubin 0.4 mg/dL (0.15-1.2) 11/08/21 01:45 AST 18 U/L (0-40) 11/08/21 01:45 ALT 22 U/L (0-41) 11/08/21 01:45 Alkaline Phosphatase 96 IU/L (40-130) 11/08/21 01:45 Troponin T Baseline 7 ng/L (0-15) 11/08/21 01:45 Troponin T 120 Minute 7.12 ng/L (0-15) 11/08/21 03:42 Total Protein 6.6 g/dL (6.6-8.7) 11/08/21 01:45 Albumin 3.8 g/dL (3.5-5.2) 11/08/21 01:45 Globulin 2.8 g/dL (1.3-4.6) 11/08/21 01:45 EKG Data EKG 1: I personally reviewed and interpreted this EKG as follows: EKG interpretation date: 11/08/21 EKG interpretation time: 03:24 Interpretation: nsr hr [address] or t wave abnormalities qrs 91 qtc 404 Discharge Plan Discharge Patient Disposition: Home Clinical Impression: Chest pain Condition: Stable Prescriptions: No Action methylsulfonylmethane [MSM] 1,000 mg Tablet 1,000 mg PO DAILY Juice Plus 4 tab PO DAILY Rx Instructions: 2 veggie tabs and 2 fruit tabs daily sildenafil 100 mg Tablet 50 mg PO . 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
[2021-11-08 01:31] VITALS: BP 140/79; PULSE 66; RESP 16; TEMP 36.8; O2SAT 98
--- NOTE | 2021-11-08 01:37 | ECG_ITS ---
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 Measurements Intervals [place] Rate: 60 P: 75 [place]: 158 QRS: 66 QRSD: 101 T: 50 QT: 407 QTc: 408 Interpretive Statements SINUS RHYTHM Compared to ECG 10/02/2020 18:27:57 No significant changes Electronically Signed On 11-08-2021 6:37:26 CDT by Oscar Desai M.D. [id number] f
[2021-11-08 01:51] LABS: Basophils % 0.5 %; Eosinophils # 0.3 10^3/uL (0.0-0.8); Eosinophils % 4.7 %; Hematocrit 42.5 % (42.0-52.0); Hemoglobin 14.5 g/dL (11.7-16.6); Lymphocytes % 36.2 %; Mean Corpuscular HGB Conc 34.1 g/dL (30.0-36.0); Mean Corpuscular Hemoglobin 32.9 pg (28.0-34.0); Mean Corpuscular Volume 96.4 fl (80-94); Mean Platelet Volume 10.6 fL (7.4-10.4); Monocytes # 0.4 10^3/uL (0.2-0.9); Neutrophils # 2.78 10^3/uL (1.8-7.7); Neutrophils % 50.6 %; Nucleated Red Blood Cells % 0 %; Platelet Count 179 10^3/cmm (130-400); Red Blood Count 4.41 10^6/uL (4.1-5.3); Red Cell Distribution Width 12.2 % (12.1-15.1); White Blood Count 5.5 10^3/uL (4.0-10.0)
[2021-11-08 02:09] LABS: Alanine Aminotransferase 22 U/L (0-41); Albumin Level 3.8 g/dL (3.5-5.2); Alkaline Phosphatase 96 IU/L (40-130); Aspartate Amino Transferase 18 U/L (0-40); Blood Urea Nitrogen 24 mg/dL (8-23); Calcium 9.3 mg/dL (8.5-10.5); Carbon Dioxide 29 mmol/L (22-29); Chloride 98 mmol/L (98-107); Globulin 2.8 g/dL (1.3-4.6); Glomerular Filtration Rate 85.2 mL/min (90-130); Glucose 99 mg/dL (65-115); Osmolality Calculated 286 mOsm/kg (285-295); Sodium 136 mmol/L (136-145); Total Bilirubin 0.4 mg/dL (0.15-1.2); Total Protein 6.6 g/dL (6.6-8.7)
[2021-11-08 02:10] LABS: Troponin(5th) Baseline 7 ng/L (0-15)
[2021-11-08 02:17] LABS: Anion Gap 13.2 (5-19); Potassium 4.2 mmol/L (3.5-5.1)
--- NOTE | 2021-11-08 03:25 | ECG_ITS ---
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 Measurements Intervals [place] Rate: 64 P: 73 PA: 163 QRS: 69 QRSD: 91 T: 47 QT: 395 QTc: 408 Interpretive Statements SINUS RHYTHM Compared to ECG 11/08/2021 01:37:02 No significant changes Electronically Signed On 11-08-2021 19:49:27 CDT by Isabella Osuna M.D. [id number]
[2021-11-08 04:10] LABS: Troponin 5 2HR 7.12 ng/L (0-15)
[2021-11-08 04:30] VITALS: BP 140/79; PULSE 67; RESP 16; O2SAT 97
[2021-11-08 04:37] VITALS: BP 140/79; PULSE 67; RESP 16; O2SAT 97
[2021-11-08 05:16] LABS: Troponin 5 2HR Delta 0.12 ABS# (0-10)
--- NOTE | 2021-11-08 20:43 | DCPLANNER ---
Addendum entered by Jennifer Talley 12/21/21 09:05: Patient had a follow up appointment scheduled with heart care - patient did attend appointment Addendum entered by Jennifer Talley 11/17/21 12:30: Patient has a follow up appointment scheduled for November at 10:[address] Osuna at [facility]. Clinic will call patient with appointment information. Original Note: development manager had message to schedule a follow up appointment for patient with cardiology. development manager sent patients information to the front office staff at [facility]. Patients information will be printed and reviewed. Clinic will call patient with appointment information.
== END 2021-11-08 04:27 | disposition home or self-care (01) ==
PROVIDERS: Emergency Provider Emergency Medicine; PCP Family Medicine
DX: R07.9 Chest pain, unspecified (principal)
CPT/HCPCS: 71045; 80053; 84484; 85025; 93005; 99285

== ENCOUNTER → 2021-12-07 09:52 | Outpatient (BNVA) | payer OTHER, SELFPAY | PROVIDERS: PCP Family Medicine; Visit Provider Internal Medicine Cardiovascular Disease | DX: R07.9 Chest pain, unspecified (principal); K21.9 Gastro-esophageal reflux disease without esophagitis | CPT/HCPCS: 99203 ==

== ENCOUNTER 2022-02-14 09:13 | Outpatient (CLI) | payer OTHER, SELFPAY ==
[2022-02-14 09:17] VITALS: BMI 22.8
--- NOTE | 2022-02-14 10:55 | ECG_ITS ---
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 Interpretive Statements NAME OF STUDY: TREADMILL STRESS TEST INDICATION: Chest Pain Baseline blood pressure of 157/82 mm Hg, heart rate of 72 beats per minute and oxygen saturation of 98%. EKG showed normal sinus rhythm, normal axis with normal ST-Ts. The patient exercised for 10 minutes 44 seconds on a [standard [place] protocol]. Patient attained a maximum heart rate of 173 beats per minute(110% of the maximum predicted heart rate) with a blood pressure at the peak exercise of 172/66 mm Hg and oxygen saturation of 96%. The EKG at the peak exercise revealed sinus tachycardia with no significant ST-T wave changes. Patient did [not have any chest pain or any significant arrhythmis with the exercise. The study was terminated due to exertional fatigue. During the recovery phase, there were no new changes. Blood pressure at the end of the recovery phase was 162/74 mm Hg with a heart rate of 97 beats per minute and oxygen saturation of 98%. CONCLUSION: 1. Normal EKG response to treadmill exercise. 2. No exercise-induced chest pain or cardiac arrhythmia. 3. Excellent exercise tolerance, attained a maximum of 13.5 METs. Maximum VO2 of 47.3 mL/kg/min. 4. Baseline hypertension with normal response to exercise. RESULTS TO MATTHEW LANGSTON MD Electronically Signed On 02-19-2022 22:57:09 PARTS SALESMAN by Isabella Osuna M.D. [id number]
[2022-02-14 11:29] VITALS: BP 164/85; PULSE 83
== END 2022-02-14 09:14 | disposition home or self-care (01) ==
LOC: CDL 09:15
PROVIDERS: PCP Family Medicine; Visit Provider Internal Medicine Cardiovascular Disease
DX: R07.9 Chest pain, unspecified (principal); I10 Essential (primary) hypertension
CPT/HCPCS: 93017

== ENCOUNTER → 2022-06-14 12:36 | Outpatient (BNVA) | payer OTHER, SELFPAY | PROVIDERS: PCP Family Medicine; Visit Provider Internal Medicine Cardiovascular Disease | DX: Z87.898 Personal history of other specified conditions (principal) | CPT/HCPCS: 99213 ==

== ENCOUNTER 2023-01-03 10:43 | Emergency (ER) | payer OTHER, SELFPAY ==
[2023-01-03 10:48] VITALS: BP 117/63; PULSE 67; RESP 16; TEMP 36.1; O2SAT 99
--- NOTE | 2023-01-03 10:55 | CT_ITS ---
WS: [id number] CT CERVICAL SPINE HISTORY: 10 ft fall TECHNIQUE: Contiguous 2.0 mm axial imaging performed through the entire cervical spine. Sagittal and coronal reformats also performed. All CT scans at [facility] use at least one of these dose o ptimization techniques: automated exposure control; mA and/or kV adjustment per patient size (include s targeted exams where dose is matched to clinical indication); or iterative reconstruction. DLP: 168.57 mGy.cm COMPARISON: None available. Mild increase in the cervical lordosis. No vertebral body fractures. Small endplate osteophytes throu ghout the cervical spine. There is mild concave deformity involving the superior endplates of T1 and T2, similar to the prior neck CT from 10/02/2020. Lateral masses are aligned and the odontoid is intac t. C2-C3: Normal. C3-C4: Osteophytic ridging around the vertebral bodies and facet arthritis. Moderate bilateral forami nal stenosis due to osteophytes. Small central disc protrusion. C4-C5: Vertebral body osteophytic ridging greatest to the RIGHT. Central osteophyte encroaching upon the ventral canal. Severe RIGHT foraminal stenosis with moderate central and LEFT foraminal stenosis. C5-C6: Small osteophytes. No stenosis. C6-C7: Osteophytic ridging around the vertebral bodies. Moderate to severe RIGHT foraminal stenosis. C7-T1: Normal. Soft tissues are normal. Lung apices are clear. IMPRESSION: 1. No acute cervical spine fracture. 2. Multilevel mild cervical spondylosis. 3. Severe RIGHT foraminal stenosis at C4-5 with moderate central and LEFT foraminal stenosis. 4. Moderate bilateral foraminal stenosis at C3-4. 5. Moderate to severe RIGHT foraminal stenosis at C6-7.
--- NOTE | 2023-01-03 10:55 | CT_ITS ---
WS: [id number] CT CHEST, ABDOMEN AND PELVIS WITH CONTRAST HISTORY: 10 ft fall with chest pain TECHNIQUE: Contiguous 5 mm axial imaging performed through the chest, abdomen and pelvis IV contrast, oral contrast has been provided. Coronal and sagittal reformats chest. Coronal and sagittal reformat s through the abdomen and pelvis. All CT scans at [facility] use at least one of these dose o ptimization techniques: automated exposure control; mA and/or kV adjustment per patient size (include s targeted exams where dose is matched to clinical indication); or iterative reconstruction. CONTRAST: Omnipaque 350; 100 mL IV. DLP: 1133.37 mGy.cm COMPARISON: None available. Chest CT: Anterior mediastinal hematoma. There is stranding within the anterior mediastinal fat in a retrosternal location. Retrosternal hematoma extends over a length of 10.8 cm beginning at the level of the proximal sternal body extending inferiorly over the RIGHT heart chambers. Hematoma extends to abut the pericardial fat. Thoracic aorta appears intact. No arterial injury is identified. There is a bovine arch. No dissection. Normal size heart. No pericardial effusion. There is a small layering LEFT pleural effusion. Mild dependent changes at the lung bases. No pneumot horax. No pulmonary laceration. Minimally displaced but comminuted fracture involving the proximal to mid sternal body. This is assoc iated with the retrosternal hematoma. Numerous left-sided rib fractures are identified along the anterior and lateral thorax. Rib fractures include the third rib, fifth through 11th ribs. Rib fractures are not significantly displaced. There is adjacent intercostal soft tissue thickening related to hematoma from the rib fractures. No thorac ic spine acute fractures are identified. The scapula and clavicles appear intact. Abdomen CT: There is a large amount of streak artifact through the upper abdomen as the patient's arm s were positioned at his side. The liver and gallbladder are negative. There is a simple laceration t hrough the superior anterior spleen. This area is partially obscured by artifact. No active extravasa tion. No pancreatic injury. Negative adrenal glands. No renal contusion or injury. No mesenteric inju ry. Normal enhancement of the small bowel and colon. Normal size aorta. Pelvic CT: No free fluid or blood is identified within the pelvis. Negative urinary bladder. There is a soft tissue injury involving the LEFT lateral lower thorax extending over the upper abdome n. No large hematoma. Soft tissue abnormality related to the rib fractures. L1 concave deformity of the superior endplate. New fracture since 09/21/2021. IMPRESSION: 1. Moderate size retrosternal hematoma extending over a length of 10.8 cm contacting the anterior RIG HT heart. 2. Retrosternal hematoma is likely related to the mildly comminuted sternal body fracture. 3. No thoracic or abdominal aortic injury is identified. 4. Small layering LEFT pleural effusion. Suspect a small amount of hemothorax related to multiple lef t-sided rib fractures. No pulmonary contusion. 5. Nondisplaced left-sided rib fractures including the third rib, fifth through 11th ribs. 6. Simple splenic laceration. No active hemorrhage. No adjacent hematoma. There is also artifact thro ugh the spleen secondary to the patient's arms being at his side but the splenic laceration does appe ar to be real. No adjacent hematoma or active bleeding. 7. LEFT intercostal muscle hematomas associated with the rib fractures. 8. Minimal compression deformity involving L1. No adjacent hematoma. New since 09/21/2021. Notified LAZARA Akhtar-Paula at 01/03/2023 12:21 PM.
[2023-01-03 11:12] LABS: Basophils % 0.5 %; Eosinophils # 0.2 10^3/uL (0.0-0.8); Eosinophils % 2.4 %; Hematocrit 44.3 % (37-53); Lymphocytes # 1.8 10^3/uL (0.8-4.8); Lymphocytes % 23.8 %; Mean Corpuscular HGB Conc 33.2 g/dL (30-55); Mean Corpuscular Hemoglobin 32.7 pg (27-33); Mean Corpuscular Volume 98.4 fl (82-101); Mean Platelet Volume 10.3 fL (7.4-10.4); Monocytes # 0.4 10^3/uL (0.2-0.9); Monocytes % 5.3 %; Neutrophils # 5.08 10^3/uL (1.8-7.7); Neutrophils % 67.3 %; Nucleated Red Blood Cells % 0 %; Platelet Count 198 10^3/cmm (157-399); Red Cell Distribution Width 12.4 % (12.1-15.1); White Blood Count 7.55 10^3/uL (3.29-11.43)
[2023-01-03 11:13] VITALS: RESP 21; O2SAT 96
[2023-01-03] MEDS: morphine 4 mg/mL SDV 1 mL IVP (11:13)
[2023-01-03] MEDS: ondansetron 2 mg/ML SDV 2 mL 4 MG IVP (11:14)
--- NOTE | 2023-01-03 11:22 | PC.PHAR ---
pt has va-pts states the pt takes no prescription medications states only taking what is entered-faxed va for list-notes are made in the pharmacy comments
[2023-01-03 11:35] LABS: Alanine Aminotransferase 21 U/L (0-41); Alkaline Phosphatase 92 U/L (40-130); Anion Gap 13.7 (5-19); Aspartate Amino Transferase 19 U/L (0-40); Blood Urea Nitrogen 21 mg/dL (8-23); Calcium 8.9 mg/dL (8.5-10.5); Carbon Dioxide 27 mmol/L (22-29); Chloride 103 mmol/L (98-107); Glucose 159 mg/dL (65-115); Osmolality Calculated 294 mOsm/kg (285-295); Potassium 4.7 mmol/L (3.5-5.1); Sodium 139 mmol/L (136-145); Total Bilirubin 0.5 mg/dL (0.15-1.2)
[2023-01-03] MEDS: iohexol 350 mg/mL 500 mL Btl (per mL) IV (11:36)
[2023-01-03 11:41] VITALS: BP 143/79; TEMP 36.7; O2SAT 99
--- NOTE | 2023-01-03 11:57 | XR_ITS ---
WS: [id number] PA chest with bilateral rib detail, 01/03/2023 Clinical Data: fall 10 ft Comparison: Portable chest, 11/08/2021 Findings: There is a minimally displaced left lateral eighth rib fracture. There are old left third and fourth posterior lateral rib fractures. No new rib fractures are seen on the right. No pneumothorax or subcu taneous emphysema is seen. The heart is normal. No pneumonia is seen. The heart is normal. The aortic arch shows tortuosity as does the descending aorta. Impression: 1. New left lateral eighth rib fracture. 2. Old left third and fourth posterior lateral rib fractures. 3. Negative for right rib fractures.
--- NOTE | 2023-01-03 12:28 | CT_ITS ---
WS: [id number] CT HEAD NONCONTRAST HISTORY: trauma TECHNIQUE: Contiguous axial imaging performed through the brain in 2.5 mm imaging. Bone and soft tiss ue windows. Sagittal and coronal reformats reviewed. All CT scans at [facility] use at least one of these dose optimization techniques: automated exposure control; mA and/or kV adjustment per pa tient size (includes targeted exams where dose is matched to clinical indication); or iterative recon struction. DLP: 1099.60 mGy.cm COMPARISON: 10/02/2020 There is high density contrast in the brain due to contrast injection earlier the same day. This woul d obscure small focal areas of hemorrhage. No large areas of acute hemorrhage are identified. No midline shift or mass effect. No contusions No atrophy or prior infarcts or herniation. Ventricles: Normal size with no hydrocephalus. Paranasal sinuses: As visualized are clear. Mastoid air cells: Well pneumatized. Calvarium and scalp: Skull is intact with no soft tissue edema or swelling. IMPRESSION: 1. No large areas of acute hemorrhage intracranial. 2. Small foci of acute blood would be obscured by the contrast enhancement within the brain from a re cent IV injection.
--- NOTE | 2023-01-03 12:30 | ED_ITS ---
Documented by User: TROY Akhtar 02/21/23 13:04 HPI - Fall General: Chief Complaint: Fall Stated Complaint: fell Time Seen by Provider: 01/03/23 10:49 History of Present Illness: Patient is in today after a 10 foot fall through floor joist. Patient reports that he caught on his left arm and then fell on down. He does not recall hitting his head. He does not think he had any loss of consciousness. He reports he is not on blood thinning medication. Patient reports that it is very painful to breathe he feels like he is having a difficult time breathing. He states that his left arm and the entire left side of his upper body/chest hurts. Associated symptoms-after fall: Reports chest pain; Denies abdominal pain Review of Systems Const: Denies: fever(s) or chills Card: Reports: chest pain; Denies: palpitations Resp: Reports: pain on inspiration GI: Denies: abdominal pain, nausea or vomiting Musc: Reports: extremity pain and limited range of motion PFSH ED PFSH: Medical History Basal cell carcinoma GERD (gastroesophageal reflux disease) Surgical History H/O circumcision History of right knee surgery Family History Mother Atrial fibrillation Hypertension Grandmother Brain aneurysm Father Cancer Lung CA Social History Smoking and tobacco/nicotine status: never used tobacco/nicotine Physical Exam Const: COMMON NORMALS: patient oriented x3 and alert OTHER: Patient is sitting in the bed not wanting to move. He is sitting extremely still. He is able to talk but it hurts him to talk. No paradoxical chest movements however patient is breathing very shallow related to pain. HENMT: OTHER: Trachea is midline Neck/C-Spine: COMMON NORMALS: no JVD OTHER: Placed patient in a c-collar. No vertebral point tenderness, bony or soft t issue deformity appreciated to the cervical spine. Chest: OTHER: Tenderness to palpation anterior chest sternum and left side. No crepitus appreciated there is swelling noted from the sternum over towards the axilla on the left side. Some redness noted just below the left nipple. Resp: OTHER: Shallow respirations. Lung sounds are clear Cardio: COMMON NORMALS: no JVD, regular rate, regular rhythm, S1 normal heart sound present and S2 normal heart sound present RATE: regular rate RHYTHM: regular rhythm HEART SOUNDS: S1 normal heart sound present and S2 normal heart sound present GI: OTHER: Soft abdomen normal inspection. Tenderness to palpation mild left upper quadrant. Back/Pelvis: OTHER: No vertebral point tenderness appreciated lumbar or thoracic spine. No step- offs appreciated. Extremity: OTHER: Tenderness to palpation left scapula, left clavicle. Decreased range of motion left arm related to pain. Distal radial and ulnar pulses intact left arm. Strong hand grasp left hand Neuro: COMMON NORMALS: patient oriented x3, CN's II-XII intact bilaterally, no focal motor deficits and no sensory deficits noted SENSORIUM/ORIENTATION: Yes alert Course Vital Signs: Vital signs: Vital Signs Temperature 98.1 F 01/03/23 11:41 Pulse Rate 72 01/03/23 13:42 Respiratory Rate 18 01/03/23 12:56 Blood Pressure 143/79 01/03/23 12:31 Pulse Oximetry 96 01/03/23 13:42 Oxygen Delivery Me thod Room Air 01/03/23 12:31 MDM - Fall Medical Decision Making Patient is in after a [address] chest abdomen and pelvis with contrast done. CT cervical spine and CT head without contrast. Dr. Bautista with radiology called and advised CT findings of sternal fracture and retrosternal hematoma with no apparent injury to the aorta, multiple left rib fractures with some fluid collection, simple laceration to the spleen with no apparent active bleeding. She also notes an L1 fracture that was not noted on patient's last imaging 1 year ago but there is no hematoma surrounding this so she is not certain if the L1 fracture is acute from today's injury. Cervical spine CT does not show any acute fractures. CT head? I discussed these findings with Dr. Pink. We will transfer patient to trauma facility in [place] patient requesting [facility]. Dr. Pink agrees with air transport given splenic lack. I discussed results of imaging with the patient and his . [facility] physician Dr. Bajwa agrees to accept patient transport via air. Lab Data 01/03/23 11:06 01/03/23 11:06 Laboratory Results WBC 7.55 10^3/uL (3.29-11.43) 01/03/23 11:06 RBC 4.50 10^6/uL (3.85-5.65) 01/03/23 11:06 Hgb 14.70 g/dL (11.27-16.99) 01/03/23 11:06 Hct 44.3 % (37-53) 01/03/23 11:06 MCV 98.4 fl (82-101) 01/03/23 11:06 MCH 32.7 pg (27-33) 01/03/23 11:06 MCHC 33.2 g/dL (30-55) 01/03/23 11:06 RDW 12.4 % (12.1-15.1) 01/03/23 11:06 Plt Count 198 10^3/cmm (157-399) 01/03/23 11:06 MPV 10.3 fL (7.4-10.4) 01/03/23 11:06 Neut % (Auto) 67.3 % 01/03/23 11:06 Lymph % (Auto) 23.8 % 01/03/23 11:06 Traill % (Auto) 5.3 % 01/03/23 11:06 Eos % (Auto) 2.4 % 01/03/23 11:06 Baso % (Auto) 0.5 % 01/03/23 11:06 Neut # (Auto) 5.08 10^3/uL (1.8-7.7) 01/03/23 11:06 Lymph # (Auto) 1.8 10^3/uL (0.8-4.8) 01/03/23 11:06 Traill # (Auto) 0.4 10^3/uL (0.2-0.9) 01/03/23 11:06 Eos # (Auto) 0.2 10^3/uL (0.0-0.8) 01/03/23 11:06 Baso # (Auto) 0.0 10^3/uL (0.0-0.1) 01/03/23 11:06 Nucleated RBC % (auto) 0 % 01/03/23 11:06 Nucleated RBCs # 0.0 /100WBC 01/03/23 11:06 PT 13.30 SECONDS (12.1-14.9) 01/03/23 11:06 INR 0.98 (0.8-1.2) 01/03/23 11:06 APTT 22.8 SECONDS (23.9-36.7) L 01/03/23 11:06 Sodium 139 mmol/L (136-145) 01/03/23 11:06 Potassium 4.7 mmol/L (3.5-5.1) 01/03/23 11:06 Chloride 103 mmol/L (98-107) 01/03/23 11:06 Carbon Dioxide 27 mmol/L (22-29) 01/03/23 11:06 Anion Gap 13.7 (5-19) 01/03/23 11:06 BUN 21 mg/dL (8-23) 01/03/23 11:06 Creatinine 0.9 mg/dL (0.7-1.2) 01/03/23 11:06 GFR Calculation 85.0 mL/min (90-130) L 01/03/23 11:06 Glucose 159 mg/dL (65-115) H 01/03/23 11:06 Calculated Osmolality 294 mOsm/kg (285-295) 01/03/23 11:06 Calcium 8.9 mg/dL (8.5-10.5) 01/03/23 11:06 Total Bilirubin 0.5 mg/dL (0.15-1.2) 01/03/23 11:06 AST 19 U/L (0-40) 01/03/23 11:06 ALT 21 U/L (0-41) 01/03/23 11:06 Alkaline Phosphatase 92 U/L (40-130) 01/03/23 11:06 Total Protein 7.0 g/dL (6.6-8.7) 01/03/23 11:06 Albumin 4.0 g/dL (3.5-5.2) 01/03/23 11:06 Globulin 3.0 g/dL (1.3-4.6) 01/03/23 11:06 Urine Color Yellow (Yellow) 01/03/23 13:19 Urine Appearance Clear (CLEAR) 01/03/23 13:19 Urine pH 5 (5-7) 01/03/23 13:19 Ur Specific [place] 1.010 (1.005-1.030) 01/03/23 13:19 Urine Protein Neg (Negative) 01/03/23 13:19 Urine Glucose (UA) Norm (Normal) 01/03/23 13:19 Urine Ketones Negative (Negative) 01/03/23 13:19 Urine Blood Neg (Negative) 01/03/23 13:19 Urine Nitrate Negative (Negative) 01/03/23 13:19 Urine Bilirubin Neg (Negative) 01/03/23 13:19 Urine Urobilinogen Norm mg/dL (Negative) 01/03/23 13:19 Ur Leukocyte Esterase Negative (Negative) 01/03/23 13:19 Discharge Plan Discharge Patient Disposition: Xfer Short-Term Hosp Condition: Stable Referrals: Yani Treadwell MD [Primary Care Provider] - Coding Level of Care Code ED Pre K Lead Teacher for Chg Fwd Documented by User: Remy Pink DO 01/03/23 13:56 HPI - Fall General: Chief Complaint: Fall Stated Complaint: fell Time Seen by Provider: 01/03/23 10:49 PFSH ED PFSH: Medical History Basal cell carcinoma GERD (gastroesophageal reflux disease) Surgical History H/O circumcision History of right knee surgery Family History Mother Atrial fibrillation Hypertension Grandmother Brain aneurysm Father Cancer Lung CA Social History Smoking and tobacco/nicotine status: never used tobacco/nicotine Course Vital Signs: Vital signs: Vital Signs Temperature 98.1 F 01/03/23 11:41 Pulse Rate 72 01/03/23 13:42 Respiratory Rate 18 01/03/23 12:56 Blood Pressure 143/79 01/03/23 12:31 Pulse Oximetry 96 01/03/23 13:42 Oxygen Delivery Me thod Room Air 01/03/23 12:31 MDM - Fall Medical Decision Making Patient is in after a [address] chest abdomen and pelvis with contrast done. CT cervical spine and CT head without contrast. Dr. Bautista with radiology called and advised CT findings of sternal fracture and retrosternal hematoma with no apparent injury to the aorta, multiple left rib fractures with some fluid collection, simple laceration to the spleen with no apparent active bleeding. She also notes an L1 fracture that was not noted on patient's last imaging 1 year ago but there is no hematoma surrounding this so she is not certain if the L1 fracture is acute from today's injury. Cervical spine CT does not show any acute fractures. CT head? I discussed these findings with Dr. Pink. We will transfer patient to trauma facility in [place] patient requesting [facility]. Dr. Pink agrees with air transport given splenic lack. I discussed results of imaging with the patient and his . [facility] physician Dr. Bajwa agrees to accept patient transport via air. Chart reviewed and patient discussed with midlevel. Agree with assessment and plan. Lab Data 01/03/23 11:06 01/03/23 11:06 Laboratory Results WBC 7.55 10^3/uL (3.29-11.43) 01/03/23 11:06 RBC 4.50 10^6/uL (3.85-5.65) 01/03/23 11:06 Hgb 14.70 g/dL (11.27-16.99) 01/03/23 11:06 Hct 44.3 % (37-53) 01/03/23 11:06 MCV 98.4 fl (82-101) 01/03/23 11:06 MCH 32.7 pg (27-33) 01/03/23 11:06 MCHC 33.2 g/dL (30-55) 01/03/23 11:06 RDW 12.4 % (12.1-15.1) 01/03/23 11:06 Plt Count 198 10^3/cmm (157-399) 01/03/23 11:06 MPV 10.3 fL (7.4-10.4) 01/03/23 11:06 Neut % (Auto) 67.3 % 01/03/23 11:06 Lymph % (Auto) 23.8 % 01/03/23 11:06 Traill % (Auto) 5.3 % 01/03/23 11:06 Eos % (Auto) 2.4 % 01/03/23 11:06 Baso % (Auto) 0.5 % 01/03/23 11:06 Neut # (Auto) 5.08 10^3/uL (1.8-7.7) 01/03/23 11:06 Lymph # (Auto) 1.8 10^3/uL (0.8-4.8) 01/03/23 11:06 Traill # (Auto) 0.4 10^3/uL (0.2-0.9) 01/03/23 11:06 Eos # (Auto) 0.2 10^3/uL (0.0-0.8) 01/03/23 11:06 Baso # (Auto) 0.0 10^3/uL (0.0-0.1) 01/03/23 11:06 Nucleated RBC % (auto) 0 % 01/03/23 11:06 Nucleated RBCs # 0.0 /100WBC 01/03/23 11:06 PT 13.30 SECONDS (12.1-14.9) 01/03/23 11:06 INR 0.98 (0.8-1.2) 01/03/23 11:06 APTT 22.8 SECONDS (23.9-36.7) L 01/03/23 11:06 Sodium 139 mmol/L (136-145) 01/03/23 11:06 Potassium 4.7 mmol/L (3.5-5.1) 01/03/23 11:06 Chloride 103 mmol/L (98-107) 01/03/23 11:06 Carbon Dioxide 27 mmol/L (22-29) 01/03/23 11:06 Anion Gap 13.7 (5-19) 01/03/23 11:06 BUN 21 mg/dL (8-23) 01/03/23 11:06 Creatinine 0.9 mg/dL (0.7-1.2) 01/03/23 11:06 GFR Calculation 85.0 mL/min (90-130) L 01/03/23 11:06 Glucose 159 mg/dL (65-115) H 01/03/23 11:06 Calculated Osmolality 294 mOsm/kg (285-295) 01/03/23 11:06 Calcium 8.9 mg/dL (8.5-10.5) 01/03/23 11:06 Total Bilirubin 0.5 mg/dL (0.15-1.2) 01/03/23 11:06 AST 19 U/L (0-40) 01/03/23 11:06 ALT 21 U/L (0-41) 01/03/23 11:06 Alkaline Phosphatase 92 U/L (40-130) 01/03/23 11:06 Total Protein 7.0 g/dL (6.6-8.7) 01/03/23 11:06 Albumin 4.0 g/dL (3.5-5.2) 01/03/23 11:06 Globulin 3.0 g/dL (1.3-4.6) 01/03/23 11:06 Urine Color Yellow (Yellow) 01/03/23 13:19 Urine Appearance Clear (CLEAR) 01/03/23 13:19 Urine pH 5 (5-7) 01/03/23 13:19 Ur Specific [place] 1.010 (1.005-1.030) 01/03/23 13:19 Urine Protein Neg (Negative) 01/03/23 13:19 Urine Glucose (UA) Norm (Normal) 01/03/23 13:19 Urine Ketones Negative (Negative) 01/03/23 13:19 Urine Blood Neg (Negative) 01/03/23 13:19 Urine Nitrate Negative (Negative) 01/03/23 13:19 Urine Bilirubin Neg (Negative) 01/03/23 13:19 Urine Urobilinogen Norm mg/dL (Negative) 01/03/23 13:19 Ur Leukocyte Esterase Negative (Negative) 01/03/23 13:19 All radiology interpretation(s) finalized by discharge Discharge Plan Discharge Patient Disposition: Xfer Short-Term Hosp Condition: Stable Referrals: Yani Treadwell MD [Primary Care Provider] - Coding Level of Care Code ED Pre K Lead Teacher for Luis Hoang
[2023-01-03 12:31] VITALS: BP 143/79; PULSE 71; O2SAT 100
--- NOTE | 2023-01-03 12:40 | ECG_ITS ---
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 Measurements Intervals [place] Rate: 66 P: 62 MO: 161 QRS: 69 QRSD: 97 T: 52 QT: 398 QTc: 418 Interpretive Statements SINUS RHYTHM Compared to ECG 11/08/2021 03:24:15 No significant changes Electronically Signed On 01-03-2023 14:09:33 CDT by Martin Duncan M.D. [id number]
[2023-01-03 12:56] VITALS: RESP 18; O2SAT 99
[2023-01-03 12:59] LABS: INR 0.98 (0.8-1.2); Partial Thromboplastin Time 22.8 SECONDS (23.9-36.7)
--- NOTE | 2023-01-03 13:11 | PC.NURSE ---
NURSE REMOVED C-COLLAR PER NURSE PRACTITIONER REQUEST
[2023-01-03 13:25] LABS: Add Urine Microscopic? NO; Charge for UA Resulting for Rev
[2023-01-03 13:39] LABS: Glucose Urine UA Norm (Normal); Ketones Urine Negative (Negative); Protein Urine Neg (Negative); Urine Appearance Clear (CLEAR); Urine Color Yellow (Yellow); pH Urine 5 (5-7)
[2023-01-03 13:40] LABS: Bilirubin Urine Neg (Negative); Blood Urine Neg (Negative); Leukocyte Esterase Urine Negative (Negative); Nitrate Urine Negative (Negative); Urobilinogen Urine Norm (Negative)
[2023-01-03 13:42] VITALS: PULSE 72; O2SAT 96
== END 2023-01-03 13:51 | disposition short-term general hospital (02) ==
PROVIDERS: Emergency Provider Nurse Practitioner Family; PCP Family Medicine
DX: R07.1 Chest pain on breathing (principal); S22.32XA Fracture of one rib, left side, initial encounter for closed fracture; S22.22XA Fracture of body of sternum, initial encounter for closed fracture; J90 Pleural effusion, not elsewhere classified; W13.3XXA Fall through floor, initial encounter
CPT/HCPCS: 70450; 71110; 71260; 72125; 74177; 80053; 81003; 85025; 85610; 85730; 93005; 96374; 96375; 96376; 99285; J2270; J2405; Q9967